=== PATIENT | female | born 1980 | race African-American/Black ===

== ENCOUNTER 2021-01-24 13:42 | Inpatient (IN) | payer OTHER ==
[~2021-01-24] VITALS: Ht 157.5 cm; Wt 70.8 kg
[2021-01-24] MEDS ORDERED: IV NORMAL SALINE 1000ML BAG 1,000 ML IV ONE ×2 (14:30→15:45)
[2021-01-24] MEDS ORDERED: MORPHINE SULFATE 4 MG/ML INJ. IVP ONE (14:30)
[2021-01-24] MEDS ORDERED: ONDANSETRON PF 4 MG/2 ML VIAL. IVP ONE (14:30)
--- NOTE | 2021-01-24 14:32 | PHYS DOC ---
Past Medical History Past Surgical History: Smoking Status: Current Every Day Smoker Additional Information: VAPES DAILY Alcohol Use: Occasionally General Adult EDM: Chief Complaint: FOOT INJURY PAIN HPI: HPI: Patient is a 40 year old female who presents with left foot and ankle pain. 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 Had a scrape on the back of her ankle. She put antibiotic ointment and had a bandage. Yesterday began having quickly advancing redness, swelling, and increasing pain. Overnight complained of subjective fever, chills, nausea, vomiting. She attributes her nausea and vomiting to a "bad" chicken salad from [employer]. Review of Systems: Review of Systems: Constitutional: Denies fever or chills. [] Eyes: Denies change in visual acuity. [] HENT: Denies nasal congestion or sore throat. [] Respiratory: Denies cough or shortness of breath. [] Cardiovascular: Denies chest pain or edema. [] GI: Reports nausea and vomiting, and cramping abdominal pain. : Denies dysuria. [] Musculoskeletal: Reports left ankle swelling, redness, tenderness. Integument: Denies rash. [] Neurologic: Denies headache, focal weakness or sensory changes. [] Endocrine: Denies polyuria or polydipsia. [] Lymphatic: Denies swollen glands. [] Psychiatric: Denies depression or anxiety. [] Heart Score: C/O Chest Pain: No Risk Factors: Risk Factors: DM, Current or recent (<one month) smoker, HTN, HLP, family history of CAD, obesity. Risk Scores: Score 0 - 3: 2.5% MACE over next 6 weeks - Discharge Home Score 4 - 6: 20.3% MACE over next 6 weeks - Admit for Clinical Observation Score 7 - 10: 72.7% MACE over next 6 weeks - Early Invasive Strategies Allergies: Allergies: Allergies Coded Allergies Type Severity Reaction Last Updated Verified No Known Drug Allergies 01/24/21 No Physical Exam: PE: Constitutional: Well developed, well nourished, no acute distress, non-toxic appearance. [] HENT: Normocephalic, atraumatic, bilateral external ears normal, oropharynx moist, no oral exudates, nose normal. [] Eyes: PERRLA, EOMI, conjunctiva normal, no discharge. [] Neck: Normal range of motion, no tenderness, supple, no stridor. [] Cardiovascular:Heart rate regular rhythm, no murmur [] Lungs & Thorax: Bilateral breath sounds clear to auscultation [] Abdomen: Bowel sounds normal, soft, no tenderness, no masses, no pulsatile masses. [] Skin: Warm, dry, no erythema, no rash. [] Back: No tenderness, no CVA tenderness. [] Extremities: Tight skin over the left ankle is warm, erythematous, and edematous when compared to the contralateral foot. Erythema streaking up the left gallardo and calf. She has severe ankle pain with passive range of motion. DP pulse intact. Brisk cap refill. Neurologic: Alert and oriented X 3, normal motor function, normal sensory function, no focal deficits noted. [] Psychologic: Affect normal, judgement normal, mood normal. [] Current Patient Data: Vital Signs: Vital Signs Date Time Temp Pulse Resp B/P (MAP) Pulse Ox O2 Delivery O2 Flow Rate FiO2 01/24/21 13:52 98.8 134 20 114/55 (74) 98 Room Air 98.8 EKG: EKG: [] Radiology/Procedures: Radiology/Procedures: [] Impression: [facility] [address] [place] [address] IMAGING REPORT Signed PATIENT: SARI VARGAS ACCOUNT: [id number] : 02/10/2003 LOCATION: ER AGE: 17 SEX: F EXAM STATUS: REG ER ORD. PHYSICIAN: MILAGRO VARGAS MD REASON: fall, right maxilla pain/tenderness/swelling PROCEDURE: CT HEAD AND MAXILLOFACIAL WO CT Head W/O Contrast: History: Reason: fall, right maxilla pain/tenderness/swelling / Spl. Instructions: / History: Comparison: none Axial images were obtained without contrast. The lockett and white matter appears normal and symmetrical for the patients age. There is no mass effect, extraaxial fluid collections or hydrocephalus. There is no gross bleed. There is no focal loss of lockett-white matter distinction to suggest acute ischemia, i.e. stroke. Impression: No acute findings. End impression CT maxillofacial without contrast History: sinus infection Axial helical images of the face were obtained without contrast. Axial and coronal reconstruction was performed. The nasal septum is mostly midline. The ostiomeatal complexes are narrow but patent. The paranasal sinuses are clear. The visualized osseous structures appear intact. The orbits appear normal. Impression: No acute findings. PQRS Compliance Statement: One or more of the following individualized dose reduction techniques were utilized for this examination: 1. Automated exposure control 2. Adjustment of the mA and/or kV according to patient size 3. Use of iterative reconstruction technique Electronically signed by: Fermín Vargas III, MD (01/24/2021 1:44 PM) [facility] DICTATED and SIGNED BY: FERMÍN VARGAS III, MD DATE: 01/24/21 [id number] 0 Course & Med Decision Making: Course & Med Decision Making Pertinent Labs and Imaging studies reviewed. (See chart for details) Patient is a 40-year-old female who presents with rapidly progressive redness, swelling, pain of her left ankle after a scrape sustained at work 2 days ago. Subjective fevers, but afebrile on arrival. Tachycardic in the 130s. BP stable. Concern for sepsis/cellulits by vital signs and exam. Given rapid progression and severe pain also concerned for potential NSTI. Sepsis order set initiated. Zosyn and vancomycin given. Plain films of the ankle and foot ordered. IV analgesics given. Will likely require admission for abx and potential surgical consultation pending course. 1430 White count elevated to 25. Also with ELO and anemia. To 2.5. I am definitely concerned for an STI. Discussed with general surgery who deferred to to orthopedic surgery given the location of the infection. Plain films did not show any acute bony process. Dr. Ma, of orthopedics, has requested a CT of the lower extremity with contrast. He is coming to evaluate the patient. Patient has been admitted to Dr. Waldrop, with [facility] [address] [facility] Disclaimer: Shey Disclaimer: This electronic medical record was generated, in whole or in part, using a voice recognition dictation system. Departure Departure Impression: Primary Impression: Sepsis Additional Impression: Cellulitis Disposition: ADMITTED INPATIENT Admitting Physician: BRANDEE (YI) Condition: CRITICAL Referrals: NO PCP (PCP) MILAGRO VARGAS MD Jan 24, 2021 14:32
--- NOTE | 2021-01-24 14:50 | RAD ---
EXAM: 1. LEFT ANKLE 3 VIEWS. 2. LEFT FOOT 3 VIEWS. HISTORY: Pain and swelling after injury. COMPARISON: None. FINDINGS: There is soft tissue swelling laterally at the ankle extending through the forefoot. There are no fractures throughout the foot and ankle. The joint spaces and alignment of the ankle mortise a re maintained. Joint spaces and alignment are maintained throughout the foot. IMPRESSION: 1. Lateral soft tissue swelling at the ankle extending to the forefoot. No fracture. Electronically signed by: Amalia Hsieh MD (01/24/2021 2:48 PM) [facility]
[2021-01-24 14:54] LABS: BASO % 0 % (0-3); EOS % 0 % (0-3); HEMATOCRIT 29.5 % (36.0-47.0); HEMOGLOBIN 8.9 g/dL (12.0-15.5); LYMPH # 0.5 x10^3/uL (1.0-4.8); LYMPH % 2 % (24-48); MEAN CORPUSCULAR HEMOGLOBIN 19 pg (25-35); MEAN CORPUSCULAR HGB CONC 30 g/dL (31-37); MEAN CORPUSCULAR VOLUME 64 fL (79-100); MONO # 1.2 x10^3/uL (0.0-1.1); MONO % 5 % (0-9); NEUT % 93 % (31-73); PLATELET COUNT 230 x10^3/uL (140-400); RED BLOOD COUNT 4.62 x10^6/uL (3.50-5.40); RED CELL DISTRIBUTION WIDTH 18.9 % (11.5-14.5); WHITE BLOOD COUNT 24.8 x10^3/uL (4.0-11.0)
[2021-01-24] MEDS ORDERED: PIPERACILLIN/TAZOBACTAM 4.5 GM in IV NORMAL SALINE 100ML 100 ML IV ONE (15:00)
[2021-01-24] MEDS ORDERED: VANCOMYCIN 1.5 GM in IV NORMAL SALINE 500ML BAG 500 ML IV ONE (15:00)
[2021-01-24 15:06] LABS: CALCIUM 8.4 mg/dL (8.5-10.1); CREATININE 1.2 mg/dL (0.6-1.0); GFR 60.8
[2021-01-24 15:17] LABS: % BANDS 11 % (0-9); % LYMPHS 2 % (24-48); % MONOS 5 % (0-10); % SEGS 82 % (35-66); PLT ESTIMATE ADEQUATE (ADEQUATE)
[2021-01-24 15:18] LABS: HYPOCHROMIA MOD; MICROCYTOSIS MARKED
[2021-01-24 15:19] LABS: ANISOCYTOSIS SLIGHT; POLYCHROMASIA SLIGHT
[2021-01-24 15:23] LABS: ALBUMIN 3.2 g/dL (3.4-5.0); ALBUMIN/GLOBULIN RATIO 0.8 (1.0-1.7); TOTAL BILIRUBIN 1.5 mg/dL (0.2-1.0); TOTAL PROTEIN 7.2 g/dL (6.4-8.2)
[2021-01-24 15:41] LABS: C-REACTIVE PROTEIN 173.8 mg/L (0-3.3)
--- NOTE | 2021-01-24 15:47 | PDOC1 ---
History and Physical Date of Service: DOS: DATE: 01/24/21 TIME: 15:40 Chief Complaint: Chief Complain: Foot injury History of Present Illness: HPI: History obtained from discussion with the ED physician and chart review: 40 year old female who presents with left foot and ankle pain. 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 Had a scrape on the back of her ankle. She put antibiotic ointment and had a bandage. Yesterday began having quickly advancing redness, swelling, and increasing pain. Overnight complained of subjective fever, chills, nausea, vomiting. She attributes her nausea and vomiting to a "bad" chicken salad from [employer]. Past Medical/Surgical History: PMH/PSH: No past medical history Past Surgical History: Allergies: Allergies: Coded Allergies: No Known Drug Allergies (Unverified , 01/24/21) Family History: Family History: Reviewed with no relevant findings Social History: Social History: Smoking Status: Current Every Day Vape smoker Alcohol Use: Occasionally Current Medications: Current Medications Current Medications Piperacillin Sod/ Tazobactam Sod 4.5 gm/Sodium Chloride 100 ml @ 200 mls/hr 1X ONCE IV Last administered on 01/24/21at 14:56; Start 01/24/21 at 15:00; Stop 01/24/21 at 15:29; Status DC Vancomycin HCl 1.5 gm/Sodium Chloride 500 ml @ 250 mls/hr 1X ONCE IV Last administered on 01/24/21at 15:29; Start 01/24/21 at 15:00; Stop 01/24/21 at 16:59 Sodium Chloride 1,000 ml @ 1,000 mls/hr 1X ONCE IV Last administered on 01/24/21at 14:55; Start 01/24/21 at 14:30; Stop 01/24/21 at 15:29; Status DC Morphine Sulfate (Morphine Sulfate) 4 mg 1X ONCE IVP Last administered on 01/24/21at 14:56; Start 01/24/21 at 14:30; Stop 01/24/21 at 14:31; Status DC Ondansetron HCl (Zofran) 4 mg 1X ONCE IVP Last administered on 01/24/21at 14:55; Start 01/24/21 at 14:30; Stop 01/24/21 at 14:31; Status DC Sodium Chloride 1,000 ml @ 1,000 mls/hr 1X ONCE IV ; Start 01/24/21 at 15:45; Stop 01/24/21 at 16:44; Status UNV ROS: Review of Systems Review of System REVIEW OF SYSTEMS: GENERAL: Denies weakness SKIN: No bruising, hair changes or rashes. EYES: No blurred, double or loss of vision. NOSE AND THROAT: No history of nosebleeds, hoarseness or sore throat. HEART: No history of palpitations, chest pain or shortness of breath on exertion. LUNGS: Denies cough, hemoptysis, wheezing or shortness of breath. GASTROINTESTINAL: Denies changes in appetite, nausea, vomiting, diarrhea or constipation. GENITOURINARY: No history of frequency, urgency, hesitancy or nocturia. NEUROLOGIC: Denies history of numbness, tingling, or tremor. PSYCHIATRIC: No history of panic, anxiety or depression. ENDOCRINE: No history of heat or cold intolerance, polyuria or polydipsia. EXTREMITIES: Left foot pain Physical Exam: Vital Signs: Vital Signs Date Time Temp Pulse Resp B/P (MAP) Pulse Ox O2 Delivery O2 Flow Rate FiO2 01/24/21 15:26 19 99 Room Air 01/24/21 13:52 98.8 134 114/55 (74) 98.8 Physcial Exam: General: Well developed, well nourished, no acute distress, well appearing HEENT: Pupils equally round and reactive to light, EOMI, no discharge, normal conjunctiva Neck: Supple, no nuchal rigidity, no JVD, trachea midline, no tenderness Cardiac: RRR, no murmurs, no gallops, no rubs Chest/Lungs: CTAB, no wheeze, no rhonchi, no crackles Abdomen: soft, non-distended, no guarding, no peritoneal signs, non-tender Back: No tenderness Extremities: Tight skin over the left ankle is warm, erythematous, and edematous when compared to the contralateral foot. Erythema streaking up the left gallardo and calf. She has severe ankle pain with passive range of motion. DP pulse intact. Brisk cap refill. Neuro: Alert and oriented x 4, no focal deficits, normal speech Labs: Labs: Laboratory Tests Test 01/24/21 14:45 White Blood Count 24.8 x10^3/uL (4.0-11.0) Red Blood Count 4.62 x10^6/uL (3.50-5.40) Hemoglobin 8.9 g/dL (12.0-15.5) Hematocrit 29.5 % (36.0-47.0) Mean Corpuscular Volume 64 fL (79-100) Mean Corpuscular Hemoglobin 19 pg (25-35) Mean Corpuscular Hemoglobin Concent 30 g/dL (31-37) Red Cell Distribution Width 18.9 % (11.5-14.5) Platelet Count 230 x10^3/uL (140-400) Neutrophils (%) (Auto) 93 % (31-73) Lymphocytes (%) (Auto) 2 % (24-48) Monocytes (%) (Auto) 5 % (0-9) Eosinophils (%) (Auto) 0 % (0-3) Basophils (%) (Auto) 0 % (0-3) Neutrophils # (Auto) 23.0 x10^3/uL (1.8-7.7) Lymphocytes # (Auto) 0.5 x10^3/uL (1.0-4.8) Monocytes # (Auto) 1.2 x10^3/uL (0.0-1.1) Eosinophils # (Auto) 0.0 x10^3/uL (0.0-0.7) Basophils # (Auto) 0.0 x10^3/uL (0.0-0.2) Segmented Neutrophils % 82 % (35-66) Band Neutrophils % 11 % (0-9) Lymphocytes % 2 % (24-48) Monocytes % 5 % (0-10) Platelet Estimate Adequate (ADEQUATE) Polychromasia Slight Hypochromasia Mod Anisocytosis Slight Microcytosis Marked Sodium Level 135 mmol/L (136-145) Potassium Level 3.0 mmol/L (3.5-5.1) Chloride Level 101 mmol/L (98-107) Carbon Dioxide Level 20 mmol/L (21-32) Anion Gap 14 (6-14) Blood Urea Nitrogen 7 mg/dL (7-20) Creatinine 1.2 mg/dL (0.6-1.0) Estimated GFR (Cockcroft-Gault) 60.8 BUN/Creatinine Ratio 6 (6-20) Glucose Level 90 mg/dL (70-99) Lactic Acid Level 2.5 mmol/L (0.4-2.0) Calcium Level 8.4 mg/dL (8.5-10.1) Total Bilirubin 1.5 mg/dL (0.2-1.0) Aspartate Amino Transf (AST/SGOT) 15 U/L (15-37) Alanine Aminotransferase (ALT/SGPT) 15 U/L (14-59) Alkaline Phosphatase 49 U/L (46-116) Total Protein 7.2 g/dL (6.4-8.2) Albumin 3.2 g/dL (3.4-5.0) Albumin/Globulin Ratio 0.8 (1.0-1.7) Laboratory Tests Test 01/24/21 14:45 White Blood Count 24.8 x10^3/uL (4.0-11.0) Red Blood Count 4.62 x10^6/uL (3.50-5.40) Hemoglobin 8.9 g/dL (12.0-15.5) Hematocrit 29.5 % (36.0-47.0) Mean Corpuscular Volume 64 fL (79-100) Mean Corpuscular Hemoglobin 19 pg (25-35) Mean Corpuscular Hemoglobin Concent 30 g/dL (31-37) Red Cell Distribution Width 18.9 % (11.5-14.5) Platelet Count 230 x10^3/uL (140-400) Neutrophils (%) (Auto) 93 % (31-73) Lymphocytes (%) (Auto) 2 % (24-48) Monocytes (%) (Auto) 5 % (0-9) Eosinophils (%) (Auto) 0 % (0-3) Basophils (%) (Auto) 0 % (0-3) Neutrophils # (Auto) 23.0 x10^3/uL (1.8-7.7) Lymphocytes # (Auto) 0.5 x10^3/uL (1.0-4.8) Monocytes # (Auto) 1.2 x10^3/uL (0.0-1.1) Eosinophils # (Auto) 0.0 x10^3/uL (0.0-0.7) Basophils # (Auto) 0.0 x10^3/uL (0.0-0.2) Segmented Neutrophils % 82 % (35-66) Band Neutrophils % 11 % (0-9) Lymphocytes % 2 % (24-48) Monocytes % 5 % (0-10) Platelet Estimate Adequate (ADEQUATE) Polychromasia Slight Hypochromasia Mod Anisocytosis Slight Microcytosis Marked Sodium Level 135 mmol/L (136-145) Potassium Level 3.0 mmol/L (3.5-5.1) Chloride Level 101 mmol/L (98-107) Carbon Dioxide Level 20 mmol/L (21-32) Anion Gap 14 (6-14) Blood Urea Nitrogen 7 mg/dL (7-20) Creatinine 1.2 mg/dL (0.6-1.0) Estimated GFR (Cockcroft-Gault) 60.8 BUN/Creatinine Ratio 6 (6-20) Glucose Level 90 mg/dL (70-99) Lactic Acid Level 2.5 mmol/L (0.4-2.0) Calcium Level 8.4 mg/dL (8.5-10.1) Total Bilirubin 1.5 mg/dL (0.2-1.0) Aspartate Amino Transf (AST/SGOT) 15 U/L (15-37) Alanine Aminotransferase (ALT/SGPT) 15 U/L (14-59) Alkaline Phosphatase 49 U/L (46-116) Total Protein 7.2 g/dL (6.4-8.2) Albumin 3.2 g/dL (3.4-5.0) Albumin/Globulin Ratio 0.8 (1.0-1.7) Images: Images PROCEDURE: ANKLE LEFT 3V IMPRESSION: 1. Lateral soft tissue swelling at the ankle extending to the forefoot. No fracture. Assessment/Plan Assessment/Plan Sepsis Acute left foot cellulitis secondary to trauma Concern for necrotizing fasciitis, LRINEC score > 10 High risk ELO due to vasomotor nephropathy Lactic acidemia Reactive leukocytosis Mild hyponatremia Mild hypokalemia Microcytic anemia, likely due to OLIVE Admit to hospitalist for further management Surgery consult Continue empiric IV antibiotics Continue clindamycin for antitoxin effect IV and p.o. electrolyte replacement Consider ferritin level Continue IV fluids Heparin for DVT prophylaxis N.p.o. for now CODE STATUS FULL Discussed with RN and SW Disposition inpatient management as above DPOA: Carlotta Jack Justifications for Admission Other Justification MALATHI RICHMOND MD Jan 24, 2021 15:47
[2021-01-24] MEDS ORDERED: CONTRAST GIVEN. MC PRN (16:15)
[2021-01-24] MEDS ORDERED: IOHEXOL 300 MG/ML 100ML VIAL. IV ONE (16:15)
[2021-01-24] MEDS ORDERED: DIPH,PERTUSS(ACELL),TET VAC/PF 0.5 ML SYRINGE. VAX IM ONE (16:45)
[2021-01-24] MEDS ORDERED: HYDROmorphone 2 MG/ML VIAL IVP ONE (16:45)
--- NOTE | 2021-01-24 17:15 | RAD ---
CT of the left lower extremity with contrast HISTORY: Swelling Axial helical images were obtained from the knee through the foot after the administration of 75 mL o f IV Omni 300. Axial coronal and sagittal reconstruction was performed. FINDINGS: There is soft tissue edema seen in the subcutaneous fat layer laterally in the foot and ankle. The ex tensor tendons appear normal. The visualized osseous structures appear normal. There is no abscess or air. There is no loss of the fat soft tissue planes. IMPRESSION: Soft tissue edema laterally. End impression These results were called to Dr. Greco and verified by read back at the time of dictation. Electronically signed by: Charlie Estrada III, MD (01/24/2021 5:13 PM) [facility]
[2021-01-24] MEDS ORDERED: DOCUSATE SODIUM 100 MG CAPSULE. PO PRN (17:45)
[2021-01-24] MEDS ORDERED: ZOLPIDEM 5 MG TABLET. PO PRN (17:45)
[2021-01-24] MEDS ORDERED: DEXTROSE 50% 25 GM / 50ML DISP.SYRIN. IV PRN (17:45)
[2021-01-24] MEDS ORDERED: SENNOSIDES 8.6 MG TABLET PO PRN (17:45)
[2021-01-24] MEDS ORDERED: ONDANSETRON PF 4 MG/2 ML VIAL. IVP PRN (17:45)
[2021-01-24] MEDS ORDERED: CEFEPIME HCL IV Push 1 GM VIAL. IVP ONE (18:00)
[2021-01-24 19:00] VITALS: BP 99/61
[2021-01-24] MEDS: IV NORMAL SALINE 1000ML BAG 1,000 ML IV SCH (19:19)
[2021-01-24] MEDS: MORPHINE SULFATE 2 MG/ML INJ. IVP PRN (19:20)
--- NOTE | 2021-01-24 20:00 | NUR ---
The patient, MATHEW NUÑEZ, 40 y/o, F admitted by MALATHI RICHMOND MD, was given written information regarding hospital policies, unit procedures and contact persons. Valuables were checked and pt refused security for any belongings. All questions answered. Will continue to monitor.
[2021-01-24] MEDS: ENOXAPARIN 40 MG/0.4 ML SYRINGE. SQ SCH (20:21)
--- NOTE | 2021-01-24 21:51 | CONS ---
DATE OF CONSULTATION: 01/24/2021 EMERGENCY DEPARTMENT CONSULTATION REQUESTING PHYSICIAN: Audie Zavaleta MD REASON FOR CONSULTATION: Left foot infection and concern for potential necrotizing fasciitis. 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 She subsequently placed some antibiotic ointment and a light bandage on the area, but noted as of the next day yesterday, now she had increasing pain, swelling and redness and this morning noted complaints of fever, chills and felt nauseous. The foot is becoming increasingly tender and swollen. PAST MEDICAL HISTORY: Significant for hypoglycemia. She denies diabetes. PAST SURGICAL HISTORY: . ALLERGIES: She has no known drug allergies. FAMILY HISTORY: Noncontributory. SOCIAL HISTORY: She denies drug use. She told me she smokes cigars and told the Emergency Department doctor and the hospitalist that she vapes. Occasional use of alcohol. Otherwise, independently ambulatory and really overall healthy prior to this issue. REVIEW OF SYSTEMS: Significant for the recent fever, chills, nausea and vomiting. Regarding other potential causes of nausea and vomiting, she thinks she got some bad chicken salad yesterday evening, but still does not feel very good and the left ankle as really continuing to bother her, getting more swollen and painful to touch or to any movement, also subjectively continues to have chills. Denies any other joint pain. PHYSICAL EXAMINATION: GENERAL: This is a pleasant, cooperative, 40-year-old female, alert and oriented, no acute distress. EXTREMITIES: Examination of the left ankle: She has a small abrasion posteriorly over the Achilles area, seems to have swelling and cellulitis that extends about probably 4 inches above her ankle. She really is not tender over the bony malleoli, but really only over the cellulitic area. On examination of her calf, there is really no any crepitus or air finding. She claims to be tender on palpation over the palpation of the calf musculature, but there is no redness, skin thickening or erythema in the area at all as it is just above the ankle. Her foot is swollen, but compartments are not tense. She can wiggle her toes with minimal pain. Moving her ankle itself causes more pulling and discomfort on the swollen, reddened area. She has normal examination of the contralateral right ankle, bilateral hips and knees as well as normal shoulder, elbow and wrist examination bilaterally with intact motor function, distal pulses, sensation, reflexes, skin in both upper and lower extremities throughout. CT scan was obtained with contrast and no evidence of abscess is present. She also really has no deep involvement whatsoever either of the fascial plane really or the deep subcutaneous area instead. There is no evidence of any necrotizing fasciitis, no air present whatsoever and really just the skin and superficial subcutaneous tissue involved at all. IMPRESSION: 1. Left ankle abrasion with subsequent cellulitis, swelling and pain. 2. Elevated white count with fever or chills. 3. Nausea and vomiting, perhaps due to some bad chicken salad last evening. TREATMENT PLAN: I had talked to her about the possibility of surgery if there is spreading infection; however, at this point, this seems to be more superficial and cellulitis. I would recommend elevation, antibiotics and observation based on the CT findings, which were reviewed with the radiologist today as well. I also cross pass with Dr. Waldrop, the hospitalist, who was also going to add clindamycin onto her regimen currently. Again, observation with nonoperative management currently. BRIE MARIE: Randy TID: [id number]
[2021-01-24] MEDS: CLINDAMYCIN 600MG PREMIX 50 ML IV SCH (22:42)
[2021-01-24 23:00] VITALS: BP 92/58
[2021-01-25] MEDS ORDERED: [UNRECOGNIZED DRUG - REMARK] (00:10)
[2021-01-25] MEDS: VANCOMYCIN PER PHARMACY MC PRN ×2 (00:23→09:59)
--- NOTE | 2021-01-25 00:23 | NUR ---
Pharmacy Vancomycin Dosing Note S:Consulted to monitor and dose vancomycin started 01/24/21. O:MATHEW NUÑEZ is a 40 year old F with Cellulitis Sepsis . Height: 5 feet, 2 inches Weight: 71.1 kg [place] Body Weight: 50.10 Adjusted Body Weight: 58.50 Dosing Weight: Actual Other Antibiotics: CLINDAMYCIN X3 ZOSYN 1X ED LABS: Last BUN: 7 Last Creatinine: 1.2 Creatinine Clearance: 56 mL/min Last WBC: 24.8 Last Procalcitonin: Tmax (past 24 hours): Microbiology: I/O: Drug Levels: Last level: on at Last dose given 01/24/21 at 1530 Vancomycin Dosing: Loading Dose: 1500 mg x1 Dosing Weight: Actual Target Trough: 15-20 A: Based on: WT AND CRCL P: 1. Begin Vancomycin 1000 mg IV q18h 2. Follow up Trough level on 01/26/21 at 0230 3. Pharmacy will continue to monitor, follow and adjust therapy as needed. CHECO BROWN RPH, 01/25/21 0023 Signed: 01/25/21 at 0023 by CHECO BROWN RPH PHA
[2021-01-25] MEDS: MORPHINE SULFATE 2 MG/ML INJ. IVP PRN ×5 (00:58→16:40)
[2021-01-25 02:56] VITALS: BP 95/56
[2021-01-25] MEDS: IV NORMAL SALINE 1000ML BAG 1,000 ML IV SCH ×2 (04:37→16:42)
[2021-01-25] MEDS: CLINDAMYCIN 600MG PREMIX 50 ML IV SCH ×2 (05:31→14:05)
[2021-01-25 07:00] VITALS: BP 95/52
[2021-01-25] MEDS: HYDROcodone/APAP 5/325MG 1 TAB TABLET PO PRN ×3 (08:39→19:21)
[2021-01-25] MEDS ORDERED: VANCOMYCIN 1 GM in IV NORMAL SALINE 250ML 250 ML IV SCH (09:00)
[2021-01-25 09:14] LABS: BASO # 0.1 x10^3/uL (0.0-0.2); BASO % 0 % (0-3); EOS % 0 % (0-3); HEMATOCRIT 28.1 % (36.0-47.0); HEMOGLOBIN 7.9 g/dL (12.0-15.5); LYMPH # 0.7 x10^3/uL (1.0-4.8); LYMPH % 3 % (24-48); MEAN CORPUSCULAR HEMOGLOBIN 19 pg (25-35); MEAN CORPUSCULAR HGB CONC 28 g/dL (31-37); MEAN CORPUSCULAR VOLUME 68 fL (79-100); MONO # 1.1 x10^3/uL (0.0-1.1); MONO % 5 % (0-9); NEUT # 22.4 x10^3/uL (1.8-7.7); NEUT % 92 % (31-73); PLATELET COUNT 202 x10^3/uL (140-400); RED BLOOD COUNT 4.11 x10^6/uL (3.50-5.40); RED CELL DISTRIBUTION WIDTH 19.1 % (11.5-14.5); WHITE BLOOD COUNT 24.3 x10^3/uL (4.0-11.0)
[2021-01-25 09:56] LABS: CALCIUM 7.2 mg/dL (8.5-10.1); CREATININE 1.1 mg/dL (0.6-1.0); GFR 67.3; MAGNESIUM 1.8 mg/dL (1.8-2.4)
[2021-01-25 10:00] LABS: POTASSIUM 2.9 mmol/L (3.5-5.1)
--- NOTE | 2021-01-25 10:19 | PDOC ---
PROGRESS NOTES Date of Service DATE: 01/25/21 TIME: 10:16 Subjective Subjective Problems overnight: Continues to complain of left ankle pain. She appears sleepy but is arousable and responds to questions Objective Vital Signs Vital Signs Date Time Temp Pulse Resp B/P (MAP) Pulse Ox O2 Delivery O2 Flow Rate FiO2 01/25/21 08:39 18 98 Nasal Cannula 2.0 01/25/21 07:00 100.0 116 95/52 (66) 100.0 Physical Exam On exam calf muscles are soft and nontender there is no evidence of any proximal migration of redness. She has a bit of bruising and a small developing blister over the lateral aspect of the ankle no clear abscess is palpable and there is no air or crepitus noted. She can gently move the ankle with pain and wiggle the toes on the left Labs Laboratory Tests Test 01/24/21 14:45 01/24/21 16:15 01/24/21 17:08 01/25/21 04:55 White Blood Count 24.8 x10^3/uL (4.0-11.0) 24.3 x10^3/uL (4.0-11.0) Red Blood Count 4.62 x10^6/uL (3.50-5.40) 4.11 x10^6/uL (3.50-5.40) Hemoglobin 8.9 g/dL (12.0-15.5) 7.9 g/dL (12.0-15.5) Hematocrit 29.5 % (36.0-47.0) 28.1 % (36.0-47.0) Mean Corpuscular Volume 64 fL (79-100) 68 fL (79-100) Mean Corpuscular Hemoglobin 19 pg (25-35) 19 pg (25-35) Mean Corpuscular Hemoglobin Concent 30 g/dL (31-37) 28 g/dL (31-37) Red Cell Distribution Width 18.9 % (11.5-14.5) 19.1 % (11.5-14.5) Platelet Count 230 x10^3/uL (140-400) 202 x10^3/uL (140-400) Neutrophils (%) (Auto) 93 % (31-73) 92 % (31-73) Lymphocytes (%) (Auto) 2 % (24-48) 3 % (24-48) Monocytes (%) (Auto) 5 % (0-9) 5 % (0-9) Eosinophils (%) (Auto) 0 % (0-3) 0 % (0-3) Basophils (%) (Auto) 0 % (0-3) 0 % (0-3) Neutrophils # (Auto) 23.0 x10^3/uL (1.8-7.7) 22.4 x10^3/uL (1.8-7.7) Lymphocytes # (Auto) 0.5 x10^3/uL (1.0-4.8) 0.7 x10^3/uL (1.0-4.8) Monocytes # (Auto) 1.2 x10^3/uL (0.0-1.1) 1.1 x10^3/uL (0.0-1.1) Eosinophils # (Auto) 0.0 x10^3/uL (0.0-0.7) 0.0 x10^3/uL (0.0-0.7) Basophils # (Auto) 0.0 x10^3/uL (0.0-0.2) 0.1 x10^3/uL (0.0-0.2) Segmented Neutrophils % 82 % (35-66) Band Neutrophils % 11 % (0-9) Lymphocytes % 2 % (24-48) Monocytes % 5 % (0-10) Platelet Estimate Adequate (ADEQUATE) Polychromasia Slight Hypochromasia Mod Anisocytosis Slight Microcytosis Marked Erythrocyte Sedimentation Rate 22 (0-25) Sodium Level 135 mmol/L (136-145) 140 mmol/L (136-145) Potassium Level 3.0 mmol/L (3.5-5.1) 2.9 mmol/L (3.5-5.1) Chloride Level 101 mmol/L (98-107) 106 mmol/L (98-107) Carbon Dioxide Level 20 mmol/L (21-32) 19 mmol/L (21-32) Anion Gap 14 (6-14) 15 (6-14) Blood Urea Nitrogen 7 mg/dL (7-20) 7 mg/dL (7-20) Creatinine 1.2 mg/dL (0.6-1.0) 1.1 mg/dL (0.6-1.0) Estimated GFR (Cockcroft-Gault) 60.8 67.3 BUN/Creatinine Ratio 6 (6-20) Glucose Level 90 mg/dL (70-99) 83 mg/dL (70-99) Lactic Acid Level 2.5 mmol/L (0.4-2.0) 2.2 mmol/L (0.4-2.0) Calcium Level 8.4 mg/dL (8.5-10.1) 7.2 mg/dL (8.5-10.1) Total Bilirubin 1.5 mg/dL (0.2-1.0) Aspartate Amino Transf (AST/SGOT) 15 U/L (15-37) Alanine Aminotransferase (ALT/SGPT) 15 U/L (14-59) Alkaline Phosphatase 49 U/L (46-116) C-Reactive Protein, Quantitative 173.8 mg/L (0-3.3) Total Protein 7.2 g/dL (6.4-8.2) Albumin 3.2 g/dL (3.4-5.0) Albumin/Globulin Ratio 0.8 (1.0-1.7) Bedside Urine HCG, Qualitative Hcg negative (Negative) SARS-CoV-2 Antigen (Rapid) Negative (NEGATIVE) Magnesium Level 1.8 mg/dL (1.8-2.4) Laboratory Tests Test 01/24/21 14:45 01/24/21 16:15 01/24/21 17:08 01/25/21 04:55 White Blood Count 24.8 x10^3/uL (4.0-11.0) 24.3 x10^3/uL (4.0-11.0) Red Blood Count 4.62 x10^6/uL (3.50-5.40) 4.11 x10^6/uL (3.50-5.40) Hemoglobin 8.9 g/dL (12.0-15.5) 7.9 g/dL (12.0-15.5) Hematocrit 29.5 % (36.0-47.0) 28.1 % (36.0-47.0) Mean Corpuscular Volume 64 fL (79-100) 68 fL (79-100) Mean Corpuscular Hemoglobin 19 pg (25-35) 19 pg (25-35) Mean Corpuscular Hemoglobin Concent 30 g/dL (31-37) 28 g/dL (31-37) Red Cell Distribution Width 18.9 % (11.5-14.5) 19.1 % (11.5-14.5) Platelet Count 230 x10^3/uL (140-400) 202 x10^3/uL (140-400) Neutrophils (%) (Auto) 93 % (31-73) 92 % (31-73) Lymphocytes (%) (Auto) 2 % (24-48) 3 % (24-48) Monocytes (%) (Auto) 5 % (0-9) 5 % (0-9) Eosinophils (%) (Auto) 0 % (0-3) 0 % (0-3) Basophils (%) (Auto) 0 % (0-3) 0 % (0-3) Neutrophils # (Auto) 23.0 x10^3/uL (1.8-7.7) 22.4 x10^3/uL (1.8-7.7) Lymphocytes # (Auto) 0.5 x10^3/uL (1.0-4.8) 0.7 x10^3/uL (1.0-4.8) Monocytes # (Auto) 1.2 x10^3/uL (0.0-1.1) 1.1 x10^3/uL (0.0-1.1) Eosinophils # (Auto) 0.0 x10^3/uL (0.0-0.7) 0.0 x10^3/uL (0.0-0.7) Basophils # (Auto) 0.0 x10^3/uL (0.0-0.2) 0.1 x10^3/uL (0.0-0.2) Segmented Neutrophils % 82 % (35-66) Band Neutrophils % 11 % (0-9) Lymphocytes % 2 % (24-48) Monocytes % 5 % (0-10) Platelet Estimate Adequate (ADEQUATE) Polychromasia Slight Hypochromasia Mod Anisocytosis Slight Microcytosis Marked Erythrocyte Sedimentation Rate 22 (0-25) Sodium Level 135 mmol/L (136-145) 140 mmol/L (136-145) Potassium Level 3.0 mmol/L (3.5-5.1) 2.9 mmol/L (3.5-5.1) Chloride Level 101 mmol/L (98-107) 106 mmol/L (98-107) Carbon Dioxide Level 20 mmol/L (21-32) 19 mmol/L (21-32) Anion Gap 14 (6-14) 15 (6-14) Blood Urea Nitrogen 7 mg/dL (7-20) 7 mg/dL (7-20) Creatinine 1.2 mg/dL (0.6-1.0) 1.1 mg/dL (0.6-1.0) Estimated GFR (Cockcroft-Gault) 60.8 67.3 BUN/Creatinine Ratio 6 (6-20) Glucose Level 90 mg/dL (70-99) 83 mg/dL (70-99) Lactic Acid Level 2.5 mmol/L (0.4-2.0) 2.2 mmol/L (0.4-2.0) Calcium Level 8.4 mg/dL (8.5-10.1) 7.2 mg/dL (8.5-10.1) Total Bilirubin 1.5 mg/dL (0.2-1.0) Aspartate Amino Transf (AST/SGOT) 15 U/L (15-37) Alanine Aminotransferase (ALT/SGPT) 15 U/L (14-59) Alkaline Phosphatase 49 U/L (46-116) C-Reactive Protein, Quantitative 173.8 mg/L (0-3.3) Total Protein 7.2 g/dL (6.4-8.2) Albumin 3.2 g/dL (3.4-5.0) Albumin/Globulin Ratio 0.8 (1.0-1.7) Bedside Urine HCG, Qualitative Hcg negative (Negative) SARS-CoV-2 Antigen (Rapid) Negative (NEGATIVE) Magnesium Level 1.8 mg/dL (1.8-2.4) Imaging Previous CT with contrast shows just superficial involvement typical of cellulitis. No evidence of any abscess deep infection or necrotizing fasciitis findings Assessment Assessment Nonoperative management of left ankle cellulitis Plan Plan of Care Previous CT scan with contrast was negative for any abscess or deep involvement. Continue to observe at present. If this coalesces more she may need some surgical treatment particularly over the lateral aspect of the ankle but currently compartments are soft and there does not appear any evidence of progression Justicifation of Admission Dx: Justifications for Admission: Justification of Admission Dx: N/A BERLIN FERNANDES MD Jan 25, 2021 10:19
--- NOTE | 2021-01-25 10:51 | PDOC ---
[facility] PROGRESS NOTE Date of Service DOS: DATE: 01/25/21 TIME: 10:47 Chief Complaint Chief Complaint Assessment/Plan Sepsis Acute left foot cellulitis secondary to trauma Concern for necrotizing fasciitis, LRINEC score > 10 High risk ELO due to vasomotor nephropathy Lactic acidemia Reactive leukocytosis Mild hyponatremia Mild hypokalemia Microcytic anemia, likely due to OLIVE Admit to hospitalist for further management Surgery consult Continue empiric IV antibiotics Continue clindamycin for antitoxin effect IV and p.o. electrolyte replacement Consider ferritin level Continue IV fluids Heparin for DVT prophylaxis Regular diet CODE STATUS FULL Discussed with RN and SW Disposition inpatient management as above DPOA: Carlotta Jack History of Present Illness History of Present Illness 40 year old female who presents with left foot and ankle pain. 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 Had a scrape on the back of her ankle. She put antibiotic ointment and had a bandage. Yesterday began having quickly advancing redness, swelling, and increasing pain. Overnight complained of subjective fever, chills, nausea, vomiting. She attributes her nausea and vomiting to a "bad" chicken salad from [employer]. 01/25/2021 No acute events overnight. Patient seen and examined bedside. Continues to have pain in her left lower extremity. Progression of her redness has not worsened. Ortho evaluated and continues to recommend nonsurgical management. Continue with IV antibiotics. Patient's chart, labs, images were reviewed and discussed with RN Vitals/I&O Vitals/I&O: Vital Signs Date Time Temp Pulse Resp B/P (MAP) Pulse Ox O2 Delivery O2 Flow Rate FiO2 01/25/21 08:39 18 98 Nasal Cannula 2.0 01/25/21 07:00 100.0 116 95/52 (66) 100.0 I & O 01/24/21 01/24/21 01/25/21 15:00 23:00 07:00 Intake Total 2600 ml 1340 ml Output Total 400 ml Balance 2600 ml 940 ml Physical Exam General: Alert, Oriented X3, Cooperative Heart: Regular rate Lungs: Clear Abdomen: Normal bowel sounds, No tenderness, Other (Extremities: Tight skin over the left ankle is warm, erythematous, and edematous when compared to the contralateral foot. Erythema streaking up the left gallardo and calf. She has severe ankle pain with passive range of motion. DP pulse intact. Brisk cap refill.) Labs Labs: Laboratory Tests Test 01/24/21 14:45 01/24/21 16:15 01/24/21 17:08 01/25/21 04:55 White Blood Count 24.8 x10^3/uL (4.0-11.0) 24.3 x10^3/uL (4.0-11.0) Red Blood Count 4.62 x10^6/uL (3.50-5.40) 4.11 x10^6/uL (3.50-5.40) Hemoglobin 8.9 g/dL (12.0-15.5) 7.9 g/dL (12.0-15.5) Hematocrit 29.5 % (36.0-47.0) 28.1 % (36.0-47.0) Mean Corpuscular Volume 64 fL (79-100) 68 fL (79-100) Mean Corpuscular Hemoglobin 19 pg (25-35) 19 pg (25-35) Mean Corpuscular Hemoglobin Concent 30 g/dL (31-37) 28 g/dL (31-37) Red Cell Distribution Width 18.9 % (11.5-14.5) 19.1 % (11.5-14.5) Platelet Count 230 x10^3/uL (140-400) 202 x10^3/uL (140-400) Neutrophils (%) (Auto) 93 % (31-73) 92 % (31-73) Lymphocytes (%) (Auto) 2 % (24-48) 3 % (24-48) Monocytes (%) (Auto) 5 % (0-9) 5 % (0-9) Eosinophils (%) (Auto) 0 % (0-3) 0 % (0-3) Basophils (%) (Auto) 0 % (0-3) 0 % (0-3) Neutrophils # (Auto) 23.0 x10^3/uL (1.8-7.7) 22.4 x10^3/uL (1.8-7.7) Lymphocytes # (Auto) 0.5 x10^3/uL (1.0-4.8) 0.7 x10^3/uL (1.0-4.8) Monocytes # (Auto) 1.2 x10^3/uL (0.0-1.1) 1.1 x10^3/uL (0.0-1.1) Eosinophils # (Auto) 0.0 x10^3/uL (0.0-0.7) 0.0 x10^3/uL (0.0-0.7) Basophils # (Auto) 0.0 x10^3/uL (0.0-0.2) 0.1 x10^3/uL (0.0-0.2) Segmented Neutrophils % 82 % (35-66) Band Neutrophils % 11 % (0-9) Lymphocytes % 2 % (24-48) Monocytes % 5 % (0-10) Platelet Estimate Adequate (ADEQUATE) Polychromasia Slight Hypochromasia Mod Anisocytosis Slight Microcytosis Marked Erythrocyte Sedimentation Rate 22 (0-25) Sodium Level 135 mmol/L (136-145) 140 mmol/L (136-145) Potassium Level 3.0 mmol/L (3.5-5.1) 2.9 mmol/L (3.5-5.1) Chloride Level 101 mmol/L (98-107) 106 mmol/L (98-107) Carbon Dioxide Level 20 mmol/L (21-32) 19 mmol/L (21-32) Anion Gap 14 (6-14) 15 (6-14) Blood Urea Nitrogen 7 mg/dL (7-20) 7 mg/dL (7-20) Creatinine 1.2 mg/dL (0.6-1.0) 1.1 mg/dL (0.6-1.0) Estimated GFR (Cockcroft-Gault) 60.8 67.3 BUN/Creatinine Ratio 6 (6-20) Glucose Level 90 mg/dL (70-99) 83 mg/dL (70-99) Lactic Acid Level 2.5 mmol/L (0.4-2.0) 2.2 mmol/L (0.4-2.0) Calcium Level 8.4 mg/dL (8.5-10.1) 7.2 mg/dL (8.5-10.1) Total Bilirubin 1.5 mg/dL (0.2-1.0) Aspartate Amino Transf (AST/SGOT) 15 U/L (15-37) Alanine Aminotransferase (ALT/SGPT) 15 U/L (14-59) Alkaline Phosphatase 49 U/L (46-116) C-Reactive Protein, Quantitative 173.8 mg/L (0-3.3) Total Protein 7.2 g/dL (6.4-8.2) Albumin 3.2 g/dL (3.4-5.0) Albumin/Globulin Ratio 0.8 (1.0-1.7) Bedside Urine HCG, Qualitative Hcg negative (Negative) SARS-CoV-2 Antigen (Rapid) Negative (NEGATIVE) Magnesium Level 1.8 mg/dL (1.8-2.4) Assessment and Plan Assessmemt and Plan Problems Medical Problems: (1) Cellulitis Status: Acute (2) Sepsis Status: Acute Comment Review of Relevant I have reviewed the following items carmel (where applicable) has been applied. Medications: Current Medications Medications (Trade) Dose Ordered Sig/Patricia Route PRN Reason Start Time Stop Time Status Last Admin Dose Admin Piperacillin Sod/ Tazobactam Sod 4.5 gm/Sodium Chloride 100 ml @ 200 mls/hr 1X ONCE IV 01/24/21 15:00 01/24/21 15:29 DC 01/24/21 14:56 Vancomycin HCl 1.5 gm/Sodium Chloride 500 ml @ 250 mls/hr 1X ONCE IV 01/24/21 15:00 01/24/21 16:59 DC 01/24/21 15:29 Sodium Chloride 1,000 ml @ 1,000 mls/hr 1X ONCE IV 01/24/21 14:30 01/24/21 15:29 DC 01/24/21 14:55 Morphine Sulfate (Morphine Sulfate) 4 mg 1X ONCE IVP 01/24/21 14:30 01/24/21 14:31 DC 01/24/21 14:56 Ondansetron HCl (Zofran) 4 mg 1X ONCE IVP 01/24/21 14:30 01/24/21 14:31 DC 01/24/21 14:55 Sodium Chloride 1,000 ml @ 1,000 mls/hr 1X ONCE IV 01/24/21 15:45 01/24/21 16:44 DC 01/24/21 16:17 Iohexol (Omnipaque 300 Mg/ml) 75 ml 1X ONCE IV 01/24/21 16:15 01/24/21 16:16 DC 01/24/21 16:55 Hydromorphone HCl (Dilaudid) 1 mg 1X ONCE IVP 01/24/21 16:45 01/24/21 16:46 DC 01/24/21 16:45 Diphtheria/ Tetanus/Acell Pertussis (ADACEL TDap SYRINGE) 0.5 ml ONCE ONCE VAX IM 01/24/21 16:45 01/24/21 16:46 DC 01/24/21 16:44 Clindamycin Phosphate 50 ml @ 100 mls/hr Q8HRS IV 01/24/21 22:00 01/25/21 21:59 01/25/21 05:31 Sodium Chloride 1,000 ml @ 100 mls/hr Q10H IV 01/24/21 18:00 01/25/21 04:37 Vancomycin HCl (Vanco Per Pharmacy) 1 each PRN DAILY PRN MC SEE COMMENTS 01/24/21 17:45 01/25/21 09:59 Acetaminophen/ Hydrocodone Bitart (Lortab 5/325) 1 tab PRN Q4HRS PRN PO MODERATE PAIN 4-6 01/24/21 17:45 01/25/21 08:39 Morphine Sulfate (Morphine Sulfate) 2 mg PRN Q2HR PRN IVP BREAKTHRU PAIN 01/24/21 17:45 01/25/21 17:44 01/25/21 07:30 Cefepime HCl (Maxipime) 1 gm 1X ONCE IVP 01/24/21 18:00 01/24/21 18:02 DC 01/24/21 19:19 Vancomycin HCl 1 gm/Sodium Chloride 250 ml @ 250 mls/hr Q18H IV 01/25/21 09:00 01/25/21 08:39 Justifications for Admission Other Justification Foot infection MALATHI RICHMOND MD Jan 25, 2021 10:51
[2021-01-25 11:00] VITALS: BP 90/48
[2021-01-25] MEDS ORDERED: CEFEPIME HCL IV Push 1 GM VIAL. IVP SCH (11:00)
[2021-01-25] MEDS ORDERED: POTASSIUM CHLORIDE 20 MEQ TABLET.ER. PO ONE ×2 (11:00→16:00)
[2021-01-25 15:00] VITALS: BP 86/52
[2021-01-25 19:00] VITALS: BP 93/58
[2021-01-25] MEDS: ENOXAPARIN 40 MG/0.4 ML SYRINGE. SQ SCH (19:20)
[2021-01-25] MEDS: LACTOBACILLUS RHAMNOSUS GG 1 CAPSULE. PO SCH (19:20)
[2021-01-25] MEDS: MORPHINE SULFATE 2 MG/ML INJ. IV PRN (22:26)
[2021-01-25 23:00] VITALS: BP 93/53
[2021-01-26] MEDS: HYDROcodone/APAP 5/325MG 1 TAB TABLET PO PRN ×3 (01:29→13:57)
[2021-01-26] MEDS: IV NORMAL SALINE 1000ML BAG 1,000 ML IV SCH ×3 (01:30→20:27)
[2021-01-26 03:02] VITALS: BP 115/58
[2021-01-26] MEDS: MORPHINE SULFATE 2 MG/ML INJ. IV PRN ×2 (03:43→08:15)
[2021-01-26 04:21] LABS: ANION GAP 10 (6-14); BLOOD UREA NITROGEN 5 mg/dL (7-20); CALCIUM 7.4 mg/dL (8.5-10.1); CARBON DIOXIDE 24 mmol/L (21-32); CHLORIDE 107 mmol/L (98-107); CREATININE 0.9 mg/dL (0.6-1.0); GFR 84.8; GLUCOSE 71 mg/dL (70-99); POTASSIUM 3.1 mmol/L (3.5-5.1); SODIUM 141 mmol/L (136-145); VANC TR 3.2 mcg/mL (10.0-20.0)
[2021-01-26] MEDS: VANCOMYCIN PER PHARMACY MC PRN (04:45)
--- NOTE | 2021-01-26 04:45 | NUR ---
Pharmacy Vancomycin Dosing Note S:Consulted to monitor and dose vancomycin started 01/24/21. O:MATHEW NUÑEZ is a 40 year old F with Cellulitis Sepsis . Height: 5 feet, 2 inches Weight: 71.1 kg [employer] Body Weight: 50.10 Adjusted Body Weight: 58.50 Dosing Weight: Actual Other Antibiotics: CLINDAMYCIN X3 ZOSYN 1X ED CEFEPIME 1 GM Q24H LABS: Last BUN: 7 Last Creatinine: 0.9 Creatinine Clearance: 73 mL/min Last WBC: 24.3 Last Procalcitonin: Tmax (past 24 hours): 100.6 Microbiology: I/O: 3940/400 Drug Levels: Last Trough level: 3.2 on 01/26/21 at 0230 Last dose given 01/25/21 at 0839 Vancomycin Dosing: Loading Dose: 1500 mg x1 Dosing Weight: Actual Target Trough: 15-20 A: Based on: TROUGH AND IMPROVED SCR P: 1. Begin Vancomycin 1000 mg IV q12h 2. Follow up Trough level on 01/27/21 at 1630 3. Pharmacy will continue to monitor, follow and adjust therapy as needed. CHECO BROWN RPH, 01/26/21 0445 Signed: 01/26/21 at 0445 by CHECO BROWN RPH PHA
[2021-01-26] MEDS ORDERED: VANCOMYCIN 1 GM in IV NORMAL SALINE 250ML 250 ML IV SCH (05:00)
[2021-01-26 07:00] VITALS: BP 96/56
[2021-01-26] MEDS: LORazepam 0.5 MG TABLET PO PRN ×2 (08:15→13:57)
[2021-01-26] MEDS: LACTOBACILLUS RHAMNOSUS GG 1 CAPSULE. PO SCH ×2 (08:16→20:28)
--- NOTE | 2021-01-26 10:04 | PDOC ---
PROGRESS NOTES Date of Service DATE: 01/26/21 TIME: 10:01 Subjective Subjective Problems overnight: Left foot and ankle still moderately swollen laterally, still painful, complains of a headache and also itching from hydrocodone Objective Vital Signs Vital Signs Date Time Temp Pulse Resp B/P (MAP) Pulse Ox O2 Delivery O2 Flow Rate FiO2 01/26/21 08:15 100 Nasal Cannula 2.0 01/26/21 07:00 99.8 110 18 96/56 (69) 99.8 Physical Exam Left lateral foot and posterior lateral ankle appears somewhat bruised. No crepitance or fluctuance palpable. She can still wiggle her toes and move the ankle with pain, no worse than her previous exam Labs Laboratory Tests Test 01/24/21 14:45 01/24/21 16:15 01/24/21 17:08 01/25/21 04:55 White Blood Count 24.8 x10^3/uL (4.0-11.0) 24.3 x10^3/uL (4.0-11.0) Red Blood Count 4.62 x10^6/uL (3.50-5.40) 4.11 x10^6/uL (3.50-5.40) Hemoglobin 8.9 g/dL (12.0-15.5) 7.9 g/dL (12.0-15.5) Hematocrit 29.5 % (36.0-47.0) 28.1 % (36.0-47.0) Mean Corpuscular Volume 64 fL (79-100) 68 fL (79-100) Mean Corpuscular Hemoglobin 19 pg (25-35) 19 pg (25-35) Mean Corpuscular Hemoglobin Concent 30 g/dL (31-37) 28 g/dL (31-37) Red Cell Distribution Width 18.9 % (11.5-14.5) 19.1 % (11.5-14.5) Platelet Count 230 x10^3/uL (140-400) 202 x10^3/uL (140-400) Neutrophils (%) (Auto) 93 % (31-73) 92 % (31-73) Lymphocytes (%) (Auto) 2 % (24-48) 3 % (24-48) Monocytes (%) (Auto) 5 % (0-9) 5 % (0-9) Eosinophils (%) (Auto) 0 % (0-3) 0 % (0-3) Basophils (%) (Auto) 0 % (0-3) 0 % (0-3) Neutrophils # (Auto) 23.0 x10^3/uL (1.8-7.7) 22.4 x10^3/uL (1.8-7.7) Lymphocytes # (Auto) 0.5 x10^3/uL (1.0-4.8) 0.7 x10^3/uL (1.0-4.8) Monocytes # (Auto) 1.2 x10^3/uL (0.0-1.1) 1.1 x10^3/uL (0.0-1.1) Eosinophils # (Auto) 0.0 x10^3/uL (0.0-0.7) 0.0 x10^3/uL (0.0-0.7) Basophils # (Auto) 0.0 x10^3/uL (0.0-0.2) 0.1 x10^3/uL (0.0-0.2) Segmented Neutrophils % 82 % (35-66) Band Neutrophils % 11 % (0-9) Lymphocytes % 2 % (24-48) Monocytes % 5 % (0-10) Platelet Estimate Adequate (ADEQUATE) Polychromasia Slight Hypochromasia Mod Anisocytosis Slight Microcytosis Marked Erythrocyte Sedimentation Rate 22 (0-25) Sodium Level 135 mmol/L (136-145) 140 mmol/L (136-145) Potassium Level 3.0 mmol/L (3.5-5.1) 2.9 mmol/L (3.5-5.1) Chloride Level 101 mmol/L (98-107) 106 mmol/L (98-107) Carbon Dioxide Level 20 mmol/L (21-32) 19 mmol/L (21-32) Anion Gap 14 (6-14) 15 (6-14) Blood Urea Nitrogen 7 mg/dL (7-20) 7 mg/dL (7-20) Creatinine 1.2 mg/dL (0.6-1.0) 1.1 mg/dL (0.6-1.0) Estimated GFR (Cockcroft-Gault) 60.8 67.3 BUN/Creatinine Ratio 6 (6-20) Glucose Level 90 mg/dL (70-99) 83 mg/dL (70-99) Lactic Acid Level 2.5 mmol/L (0.4-2.0) 2.2 mmol/L (0.4-2.0) Calcium Level 8.4 mg/dL (8.5-10.1) 7.2 mg/dL (8.5-10.1) Total Bilirubin 1.5 mg/dL (0.2-1.0) Aspartate Amino Transf (AST/SGOT) 15 U/L (15-37) Alanine Aminotransferase (ALT/SGPT) 15 U/L (14-59) Alkaline Phosphatase 49 U/L (46-116) C-Reactive Protein, Quantitative 173.8 mg/L (0-3.3) Total Protein 7.2 g/dL (6.4-8.2) Albumin 3.2 g/dL (3.4-5.0) Albumin/Globulin Ratio 0.8 (1.0-1.7) Bedside Urine HCG, Qualitative Hcg negative (Negative) SARS-CoV-2 RNA ([place]) Negative (Negative) SARS-CoV-2 Antigen (Rapid) Negative (NEGATIVE) Magnesium Level 1.8 mg/dL (1.8-2.4) Test 01/26/21 02:35 Sodium Level 141 mmol/L (136-145) Potassium Level 3.1 mmol/L (3.5-5.1) Chloride Level 107 mmol/L (98-107) Carbon Dioxide Level 24 mmol/L (21-32) Anion Gap 10 (6-14) Blood Urea Nitrogen 5 mg/dL (7-20) Creatinine 0.9 mg/dL (0.6-1.0) Estimated GFR (Cockcroft-Gault) 84.8 Glucose Level 71 mg/dL (70-99) Calcium Level 7.4 mg/dL (8.5-10.1) Vancomycin Level Trough 3.2 mcg/mL (10.0-20.0) Vancomycin Last Dose Date Vancomycin Last Dose Time Laboratory Tests Test 01/26/21 02:35 Sodium Level 141 mmol/L (136-145) Potassium Level 3.1 mmol/L (3.5-5.1) Chloride Level 107 mmol/L (98-107) Carbon Dioxide Level 24 mmol/L (21-32) Anion Gap 10 (6-14) Blood Urea Nitrogen 5 mg/dL (7-20) Creatinine 0.9 mg/dL (0.6-1.0) Estimated GFR (Cockcroft-Gault) 84.8 Glucose Level 71 mg/dL (70-99) Calcium Level 7.4 mg/dL (8.5-10.1) Vancomycin Level Trough 3.2 mcg/mL (10.0-20.0) Vancomycin Last Dose Date Vancomycin Last Dose Time Assessment Assessment Nonoperative treatment of left ankle abrasion and cellulitis Plan Plan of Care I am submitting an infectious disease consult on her, she had no evidence of abscess or necrotizing fasciitis on CT scan, any infection issues are more localized to the lateral left foot and ankle but no clear abscess palpable and therefore not a clear surgical indication currently Ordered ibuprofen for headache and generalized inflammation as she complained of some itching from hydrocodone Justicifation of Admission Dx: Justifications for Admission: Justification of Admission Dx: N/A BERLIN FERNANDES MD Jan 26, 2021 10:04
[2021-01-26 11:00] VITALS: BP 99/55
[2021-01-26] MEDS ORDERED: FAMOTIDINE 20 MG TABLET. PO ONE (11:00)
--- NOTE | 2021-01-26 11:12 | PDOC ---
[facility] PROGRESS NOTE Date of Service DOS: DATE: 01/26/21 TIME: 10:46 Chief Complaint Chief Complaint Assessment/Plan Sepsis Acute left foot cellulitis secondary to trauma ELO due to vasomotor nephropathy Lactic acidemia Reactive leukocytosis Mild hyponatremia Mild hypokalemia Microcytic anemia, likely due to OLIVE Admit to hospitalist for further management Surgery consult Continue empiric IV antibiotics Continue clindamycin for antitoxin effect IV and p.o. electrolyte replacement Consider ferritin level Continue IV fluids Heparin for DVT prophylaxis Regular diet CODE STATUS FULL Discussed with RN and SW Disposition inpatient management as above DPOA: Carlotta Jack History of Present Illness History of Present Illness Ms Jack is a 40 yo female who presents with left foot and ankle pain. 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 Had a scrape on the back of her ankle. She put antibiotic ointment and had a bandage. Over 24 hours began having quickly advancing redness, swelling, and increasing pain. Overnight complained of subjective fever, chills, nausea, vomiting. She attributes her nausea and vomiting to a "bad" chicken salad from [employer]. 01/25: No acute events overnight. Patient seen and examined bedside. Continues to have pain in her left lower extremity. Progression of her redness has not worsened. Ortho evaluated and continues to recommend nonsurgical management. Continue with IV antibiotics. Patient's chart, labs, images were reviewed and discussed with RN Vancomycin trough low. Still with significant pain and now blistering around her lateral left ankle. ID consulted by ortho. C/o headache and nausea today as well. Vitals/I&O Vitals/I&O: Vital Signs Date Time Temp Pulse Resp B/P (MAP) Pulse Ox O2 Delivery O2 Flow Rate FiO2 01/26/21 08:15 100 Nasal Cannula 2.0 01/26/21 07:00 99.8 110 18 96/56 (69) 99.8 I & O 01/25/21 01/25/21 01/26/21 15:00 23:00 07:00 Intake Total 480 ml 620 ml 1730 ml Output Total 600 ml Balance 480 ml 620 ml 1130 ml Physical Exam General: Alert, Oriented X3, Cooperative Heart: Regular rate Lungs: Clear Abdomen: Normal bowel sounds, No tenderness, Other (Extremities: Tight skin over the left ankle is warm, erythematous, and edematous when compared to the contralateral foot. Erythema streaking up the left gallardo and calf. She has severe ankle pain with passive range of motion. DP pulse intact. Brisk cap refill.) Labs Labs: Laboratory Tests Test 01/26/21 02:35 Sodium Level 141 mmol/L (136-145) Potassium Level 3.1 mmol/L (3.5-5.1) Chloride Level 107 mmol/L (98-107) Carbon Dioxide Level 24 mmol/L (21-32) Anion Gap 10 (6-14) Blood Urea Nitrogen 5 mg/dL (7-20) Creatinine 0.9 mg/dL (0.6-1.0) Estimated GFR (Cockcroft-Gault) 84.8 Glucose Level 71 mg/dL (70-99) Calcium Level 7.4 mg/dL (8.5-10.1) Vancomycin Level Trough 3.2 mcg/mL (10.0-20.0) Vancomycin Last Dose Date Vancomycin Last Dose Time Assessment and Plan Assessmemt and Plan Problems Medical Problems: (1) Cellulitis Status: Acute (2) Sepsis Status: Acute Comment Review of Relevant I have reviewed the following items carmel (where applicable) has been applied. Medications: Current Medications Medications (Trade) Dose Ordered Sig/Patricia Route PRN Reason Start Time Stop Time Status Last Admin Dose Admin Vancomycin HCl (Vancomycin Trough Level) 1 each 1X ONCE MC 01/26/21 02:30 01/26/21 02:31 DC 01/26/21 02:30 Lactobacillus Rhamnosus (Culturelle) 1 cap BID PO 01/25/21 21:00 01/26/21 08:16 Potassium Chloride (Klor-Con) 40 meq 1X ONCE PO 01/25/21 11:00 01/25/21 11:01 DC 01/25/21 11:44 Potassium Chloride (Klor-Con) 40 meq 1X ONCE PO 01/25/21 16:00 01/25/21 16:01 DC 01/25/21 16:54 Cefepime HCl (Maxipime) 1 gm Q24H IVP 01/25/21 11:00 01/25/21 11:44 Vancomycin HCl 1 gm/Sodium Chloride 250 ml @ 250 mls/hr Q12H IV 01/26/21 05:00 10/11/21 04:41 Justifications for Admission Other Justification Foot infection SUSIE DIEGO MD Jan 26, 2021 11:12
--- NOTE | 2021-01-26 11:29 | CONS ---
DATE OF CONSULTATION: 01/26/2021 REQUESTING PHYSICIAN: Hollis Ma MD REASON FOR CONSULTATION: Left foot cellulitis. HISTORY OF PRESENT ILLNESS: This is a 40-year-old -[place] female who said at work she got hit by a cart, sustained a minor laceration. She was fine on that day. She says, next day, she started having pain, swelling and then it became red and she came in. The patient is diagnosed with cellulitis. The patient had a x-ray and CT of the lower extremity, which was negative for any fracture. The patient is complaining of lot of pain. Has had fever up to 100.2 and the white count of 24,000. The patient is elevating the legs with lot of pain and does not even allow to touch. Denies any nausea, vomiting, diarrhea. Denies any chest pain, shortness of breath, abdominal pain, urinary symptoms. PAST MEDICAL HISTORY: Positive for she has had . SOCIAL HISTORY: Positive for smoking. No alcohol use or drug use. ALLERGIES: No known drug allergies. CURRENT MEDICATIONS: Reviewed. The patient is on vancomycin and cefepime. REVIEW OF SYSTEMS: As in HPI. All other systems reviewed and are negative. PHYSICAL EXAMINATION: GENERAL: Alert, oriented female, not in distress. VITAL SIGNS: Stable, T-max 100.2. HEENT: Both pupils are round and reacting. No conjunctival lesion. No lesion in the mouth. NECK: Supple. No JVP, no lymphadenopathy. LUNGS: Clear. HEART: S1, S2, regular. ABDOMEN: Soft, nontender. No organomegaly. EXTREMITIES: No edema, cyanosis. Left foot and ankle is swollen and red. She has had some what appears to be minor skin breakdown, which has actually closed now on the lateral part and the redness is on the foot, ankle and going into the lower part of the leg. There is no localized induration. There is no pus pointing. NEUROLOGIC: Alert, awake, appropriate. No focal neurologic deficit. LABORATORY DATA: White count is 24,000. BUN and creatinine is normal. Blood culture is negative. IMPRESSION: 1. Left lower extremity cellulitis after having trauma at work with minor laceration. 2. Leukocytosis. 3. Fever. RECOMMEND: Change vancomycin and cefepime to Rocephin, leg elevation, supportive care and we will continue to follow. JOSE DR: ABIODUN/dana TID: [id number]
[2021-01-26] MEDS: KETOROLAC 30 MG/ML VIAL. IVP PRN (11:30)
--- NOTE | 2021-01-26 11:40 | NUR ---
SW following. Discussed with RN, pt from home, room air, regular diet. COVID-19 negative. Ortho and ID following. Med Assist following for self pay status. SW will continue to follow.
[2021-01-26] MEDS: cefTRIAXone IV Push 2 GM VIAL. IVP SCH (12:00)
[2021-01-26] MEDS: FAMOTIDINE 20 MG TABLET. PO SCH (12:08)
[2021-01-26] MEDS ORDERED: POTASSIUM CHLORIDE 20 MEQ TABLET.ER. PO ONE (13:45)
[2021-01-26 15:00] VITALS: BP 98/59
[2021-01-26] MEDS: IBUPROFEN 400 MG TABLET. PO PRN (18:41)
[2021-01-26 19:00] VITALS: BP 97/64
[2021-01-26] MEDS: ENOXAPARIN 40 MG/0.4 ML SYRINGE. SQ SCH (20:28)
[2021-01-26 22:54] VITALS: BP 109/52
[2021-01-27] MEDS: KETOROLAC 30 MG/ML VIAL. IVP PRN (00:55)
[2021-01-27] MEDS: PROCHLORPERAZINE 10 MG/2 ML VIAL. IV PRN (00:55)
[2021-01-27 03:24] VITALS: BP 90/52
[2021-01-27] MEDS: IV NORMAL SALINE 1000ML BAG 1,000 ML IV SCH ×2 (06:05→17:17)
[2021-01-27 07:00] VITALS: BP 103/64
--- NOTE | 2021-01-27 07:19 | PDOC ---
[facility] PROGRESS NOTE Date of Service DOS: DATE: 01/27/21 TIME: 07:19 Chief Complaint Chief Complaint Assessment/Plan Sepsis Acute left foot cellulitis secondary to trauma ELO due to vasomotor nephropathy Lactic acidemia Reactive leukocytosis Mild hyponatremia Mild hypokalemia Microcytic anemia, likely due to OLIVE Admit to hospitalist for further management Surgery consult Continue empiric IV antibiotics Continue clindamycin for antitoxin effect IV and p.o. electrolyte replacement Consider ferritin level Continue IV fluids Heparin for DVT prophylaxis Regular diet CODE STATUS FULL Discussed with RN and SW Disposition inpatient management as above DPOA: Carlotta Jack History of Present Illness History of Present Illness Ms Jack is a 40 yo female who presents with left foot and ankle pain. 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 Had a scrape on the back of her ankle. She put antibiotic ointment and had a bandage. Over 24 hours began having quickly advancing redness, swelling, and increasing pain. Overnight complained of subjective fever, chills, nausea, vomiting. She attributes her nausea and vomiting to a "bad" chicken salad from [employer]. 01/25: No acute events overnight. Patient seen and examined bedside. Continues to have pain in her left lower extremity. Progression of her redness has not worsened. Ortho evaluated and continues to recommend nonsurgical management. Continue with IV antibiotics. Patient's chart, labs, images were reviewed and discussed with RN 01/26: Vancomycin trough low. Still with significant pain and now blistering around her lateral left ankle. ID consulted by ortho. C/o headache and nausea today as well. Afebrile overnight. No nausea vomiting or diarrhea though she does have some epigastric fullness. Headaches improved, but foot pain is minimally improved. Swelling is minimally improved the redness and erythema seem to be increased including her calf up to her popliteal fossa. There is good skin wrinkling and some blistering laterally on the malleolus. WBC still elevated. K 3 today. Vitals/I&O Vitals/I&O: Vital Signs Date Time Temp Pulse Resp B/P (MAP) Pulse Ox O2 Delivery O2 Flow Rate FiO2 01/27/21 03:24 98.9 101 90/52 (65) Nasal Cannula 2.0 98.9 01/26/21 22:54 17 100 I & O 01/26/21 01/26/21 01/27/21 15:00 23:00 07:00 Intake Total 1000 ml 950 ml 800 ml Output Total 1500 ml 200 ml Balance 1000 ml -550 ml 600 ml Physical Exam General: Alert, Oriented X3, Cooperative Heart: Regular rate Lungs: Clear Abdomen: Normal bowel sounds, No tenderness, Other (Extremities: Tight skin over the left ankle is warm, erythematous, and edematous when compared to the contralateral foot. Erythema streaking up the left gallardo and calf. She has severe ankle pain with passive range of motion. DP pulse intact. Brisk cap re fill.) Assessment and Plan Assessmemt and Plan Problems Medical Problems: (1) Cellulitis Status: Acute (2) Sepsis Status: Acute Comment Review of Relevant I have reviewed the following items carmel (where applicable) has been applied. Medications: Current Medications Medications (Trade) Dose Ordered Sig/Patricia Route PRN Reason Start Time Stop Time Status Last Admin Dose Admin Ketorolac Tromethamine (Toradol 30mg Vial) 30 mg PRN Q6HRS PRN IVP INFLAMMATION 01/26/21 11:00 01/27/21 00:55 Famotidine (Pepcid) 20 mg 1X ONCE PO 01/26/21 11:00 01/26/21 11:01 DC 01/26/21 11:00 Famotidine (Pepcid) 20 mg BID PO 01/26/21 21:00 01/26/21 12:08 Ceftriaxone Sodium (Rocephin) 2 gm Q24H IVP 01/26/21 12:00 01/26/21 12:00 Ibuprofen (Motrin) 400 mg PRN Q6HRS PRN PO INFLAMMATION 01/26/21 09:00 01/26/21 18:41 Potassium Chloride (Klor-Con) 40 meq 1X ONCE PO 01/26/21 13:45 01/26/21 13:46 DC 01/26/21 14:25 Justifications for Admission Other Justification Foot infection SUSIE DIEGO MD Jan 27, 2021 07:19
[2021-01-27 07:57] LABS: BASO % 0 % (0-3); EOS # 0.3 x10^3/uL (0.0-0.7); EOS % 2 % (0-3); HEMATOCRIT 26.7 % (36.0-47.0); LYMPH # 0.6 x10^3/uL (1.0-4.8); LYMPH % 3 % (24-48); MEAN CORPUSCULAR HEMOGLOBIN 19 pg (25-35); MEAN CORPUSCULAR HGB CONC 30 g/dL (31-37); MEAN CORPUSCULAR VOLUME 64 fL (79-100); MONO # 0.9 x10^3/uL (0.0-1.1); MONO % 5 % (0-9); NEUT # 16.8 x10^3/uL (1.8-7.7); NEUT % 90 % (31-73); PLATELET COUNT 232 x10^3/uL (140-400); RED BLOOD COUNT 4.15 x10^6/uL (3.50-5.40); RED CELL DISTRIBUTION WIDTH 19.2 % (11.5-14.5); WHITE BLOOD COUNT 18.7 x10^3/uL (4.0-11.0)
[2021-01-27 08:11] LABS: CALCIUM 7.8 mg/dL (8.5-10.1); CREATININE 0.8 mg/dL (0.6-1.0); GFR 97.1; MAGNESIUM 2.1 mg/dL (1.8-2.4)
[2021-01-27] MEDS: LACTOBACILLUS RHAMNOSUS GG 1 CAPSULE. PO SCH ×2 (09:19→22:03)
[2021-01-27] MEDS: FAMOTIDINE 20 MG TABLET. PO SCH ×2 (09:19→22:04)
[2021-01-27] MEDS: HYDROcodone/APAP 5/325MG 1 TAB TABLET PO PRN ×2 (09:28→19:22)
--- NOTE | 2021-01-27 10:42 | PDOC ---
Infectious Disease Note Subjective Subjective Patient is feeling slightly better ROS ROS No nausea vomiting diarrhea or fever Vital Sign Vital Signs Vital Signs Date Time Temp Pulse Resp B/P (MAP) Pulse Ox O2 Delivery O2 Flow Rate FiO2 01/27/21 07:40 Nasal Cannula 2.0 01/27/21 07:00 98.3 110 18 103/64 (77) 100 98.3 Physical Exam PHYSICAL EXAM GENERAL: Alert, oriented female, not in distress. VITAL SIGNS: Stable, HEENT: Both pupils are round and reacting. No conjunctival lesion. No lesion in the mouth. NECK: Supple. No JVP, no lymphadenopathy. LUNGS: Clear. HEART: S1, S2, regular. ABDOMEN: Soft, nontender. No organomegaly. EXTREMITIES: No edema, cyanosis. Left foot and ankle is swollen and red. She has had some what appears to be minor skin breakdown, which has actually closed now on the lateral part and the redness is on the foot, ankle and going into the lower part of the leg. There is no localized induration. There is no pus pointing. NEUROLOGIC: Alert, awake, appropriate. No focal neurologic deficit. Labs Lab Laboratory Tests Test 01/27/21 07:05 White Blood Count 18.7 x10^3/uL (4.0-11.0) Red Blood Count 4.15 x10^6/uL (3.50-5.40) Hemoglobin 8.0 g/dL (12.0-15.5) Hematocrit 26.7 % (36.0-47.0) Mean Corpuscular Volume 64 fL (79-100) Mean Corpuscular Hemoglobin 19 pg (25-35) Mean Corpuscular Hemoglobin Concent 30 g/dL (31-37) Red Cell Distribution Width 19.2 % (11.5-14.5) Platelet Count 232 x10^3/uL (140-400) Neutrophils (%) (Auto) 90 % (31-73) Lymphocytes (%) (Auto) 3 % (24-48) Monocytes (%) (Auto) 5 % (0-9) Eosinophils (%) (Auto) 2 % (0-3) Basophils (%) (Auto) 0 % (0-3) Neutrophils # (Auto) 16.8 x10^3/uL (1.8-7.7) Lymphocytes # (Auto) 0.6 x10^3/uL (1.0-4.8) Monocytes # (Auto) 0.9 x10^3/uL (0.0-1.1) Eosinophils # (Auto) 0.3 x10^3/uL (0.0-0.7) Basophils # (Auto) 0.0 x10^3/uL (0.0-0.2) Sodium Level 143 mmol/L (136-145) Potassium Level 3.0 mmol/L (3.5-5.1) Chloride Level 110 mmol/L (98-107) Carbon Dioxide Level 25 mmol/L (21-32) Anion Gap 8 (6-14) Blood Urea Nitrogen 3 mg/dL (7-20) Creatinine 0.8 mg/dL (0.6-1.0) Estimated GFR (Cockcroft-Gault) 97.1 Glucose Level 132 mg/dL (70-99) Calcium Level 7.8 mg/dL (8.5-10.1) Magnesium Level 2.1 mg/dL (1.8-2.4) Micro Microbiology 01/24/21 Blood Culture - Preliminary, Resulted NO GROWTH AFTER 2 DAYS Objective Assessment IMPRESSION: 1. Left lower extremity cellulitis after having trauma at work with minor skin breakdowns 2. Leukocytosis. 3. Fever. Plan Plan of Care cont antibiotics cont leg elevation YOLETTE DAN MD Jan 27, 2021 10:42
[2021-01-27 11:00] VITALS: BP 107/71
[2021-01-27] MEDS: cefTRIAXone IV Push 2 GM VIAL. IVP SCH (11:16)
[2021-01-27] MEDS: LINEZOLID 600 MG TABLET PO SCH ×2 (11:16→22:04)
[2021-01-27] MEDS ORDERED: POTASSIUM BICARB 20 MEQ EFFERVESCENT TABLET. PO ONE (12:15)
[2021-01-27] MEDS ORDERED: MAG HYDROX/ALUMINUM HYD/SIMETH 30 ML ORAL.SUSP PO PRN (12:15)
--- NOTE | 2021-01-27 14:16 | PDOC ---
PROGRESS NOTES Date of Service DATE: 01/27/21 TIME: 14:14 Subjective Subjective Problems overnight: Complains of left foot and ankle pain that she says is more tolerable but gets up to about a 7-8 if she gets up and around, overall looks and acts better today than previous rounding visits Objective Vital Signs Vital Signs Date Time Temp Pulse Resp B/P (MAP) Pulse Ox O2 Delivery O2 Flow Rate FiO2 01/27/21 11:00 99.7 112 18 107/71 (83) 100 Room Air 99.7 01/27/21 07:40 2.0 Physical Exam Left foot and ankle still swollen particularly laterally area is bruised and a couple of small blisters cellulitis appears to be less noticeable than previous and calf is soft and nontender proximally no pain out of proportion with motion of the ankle or wiggling the toes Labs Laboratory Tests Test 01/26/21 02:35 01/27/21 07:05 Sodium Level 141 mmol/L (136-145) 143 mmol/L (136-145) Potassium Level 3.1 mmol/L (3.5-5.1) 3.0 mmol/L (3.5-5.1) Chloride Level 107 mmol/L (98-107) 110 mmol/L (98-107) Carbon Dioxide Level 24 mmol/L (21-32) 25 mmol/L (21-32) Anion Gap 10 (6-14) 8 (6-14) Blood Urea Nitrogen 5 mg/dL (7-20) 3 mg/dL (7-20) Creatinine 0.9 mg/dL (0.6-1.0) 0.8 mg/dL (0.6-1.0) Estimated GFR (Cockcroft-Gault) 84.8 97.1 Glucose Level 71 mg/dL (70-99) 132 mg/dL (70-99) Calcium Level 7.4 mg/dL (8.5-10.1) 7.8 mg/dL (8.5-10.1) Vancomycin Level Trough 3.2 mcg/mL (10.0-20.0) Vancomycin Last Dose Date Vancomycin Last Dose Time White Blood Count 18.7 x10^3/uL (4.0-11.0) Red Blood Count 4.15 x10^6/uL (3.50-5.40) Hemoglobin 8.0 g/dL (12.0-15.5) Hematocrit 26.7 % (36.0-47.0) Mean Corpuscular Volume 64 fL (79-100) Mean Corpuscular Hemoglobin 19 pg (25-35) Mean Corpuscular Hemoglobin Concent 30 g/dL (31-37) Red Cell Distribution Width 19.2 % (11.5-14.5) Platelet Count 232 x10^3/uL (140-400) Neutrophils (%) (Auto) 90 % (31-73) Lymphocytes (%) (Auto) 3 % (24-48) Monocytes (%) (Auto) 5 % (0-9) Eosinophils (%) (Auto) 2 % (0-3) Basophils (%) (Auto) 0 % (0-3) Neutrophils # (Auto) 16.8 x10^3/uL (1.8-7.7) Lymphocytes # (Auto) 0.6 x10^3/uL (1.0-4.8) Monocytes # (Auto) 0.9 x10^3/uL (0.0-1.1) Eosinophils # (Auto) 0.3 x10^3/uL (0.0-0.7) Basophils # (Auto) 0.0 x10^3/uL (0.0-0.2) Magnesium Level 2.1 mg/dL (1.8-2.4) Laboratory Tests Test 01/27/21 07:05 White Blood Count 18.7 x10^3/uL (4.0-11.0) Red Blood Count 4.15 x10^6/uL (3.50-5.40) Hemoglobin 8.0 g/dL (12.0-15.5) Hematocrit 26.7 % (36.0-47.0) Mean Corpuscular Volume 64 fL (79-100) Mean Corpuscular Hemoglobin 19 pg (25-35) Mean Corpuscular Hemoglobin Concent 30 g/dL (31-37) Red Cell Distribution Width 19.2 % (11.5-14.5) Platelet Count 232 x10^3/uL (140-400) Neutrophils (%) (Auto) 90 % (31-73) Lymphocytes (%) (Auto) 3 % (24-48) Monocytes (%) (Auto) 5 % (0-9) Eosinophils (%) (Auto) 2 % (0-3) Basophils (%) (Auto) 0 % (0-3) Neutrophils # (Auto) 16.8 x10^3/uL (1.8-7.7) Lymphocytes # (Auto) 0.6 x10^3/uL (1.0-4.8) Monocytes # (Auto) 0.9 x10^3/uL (0.0-1.1) Eosinophils # (Auto) 0.3 x10^3/uL (0.0-0.7) Basophils # (Auto) 0.0 x10^3/uL (0.0-0.2) Sodium Level 143 mmol/L (136-145) Potassium Level 3.0 mmol/L (3.5-5.1) Chloride Level 110 mmol/L (98-107) Carbon Dioxide Level 25 mmol/L (21-32) Anion Gap 8 (6-14) Blood Urea Nitrogen 3 mg/dL (7-20) Creatinine 0.8 mg/dL (0.6-1.0) Estimated GFR (Cockcroft-Gault) 97.1 Glucose Level 132 mg/dL (70-99) Calcium Level 7.8 mg/dL (8.5-10.1) Magnesium Level 2.1 mg/dL (1.8-2.4) Assessment Assessment Nonoperative management left foot cellulitis with abrasion heel Plan Plan of Care Continue medical management of left foot cellulitis, no surgical indication at present. Discussed with Dr. Bales of infectious disease and will continue to monitor Justicifation of Admission Dx: Justifications for Admission: Justification of Admission Dx: N/A BERLIN FERNANDES MD Jan 27, 2021 14:16
[2021-01-27 15:00] VITALS: BP 118/70
[2021-01-27] MEDS: ACETAMINOPHEN 325 MG TABLET. PO PRN (16:20)
[2021-01-27 19:00] VITALS: BP 107/74
[2021-01-27] MEDS: ENOXAPARIN 40 MG/0.4 ML SYRINGE. SQ SCH (22:04)
[2021-01-27 23:23] VITALS: BP 104/63
[2021-01-28] MEDS: diphenhydrAMINE HCL 25 MG CAPSULE PO PRN (01:24)
[2021-01-28] MEDS: IV NORMAL SALINE 1000ML BAG 1,000 ML IV SCH ×3 (01:25→22:00)
[2021-01-28 03:00] VITALS: BP 114/72
[2021-01-28] MEDS: MORPHINE SULFATE 2 MG/ML INJ. IV PRN (04:27)
[2021-01-28 07:00] VITALS: BP 113/69
--- NOTE | 2021-01-28 07:30 | PDOC ---
[facility] [facility] PROGRESS NOTE Date of Service DOS: DATE: 01/28/21 TIME: 07:29 Chief Complaint Chief Complaint Assessment/Plan Sepsis Acute left foot cellulitis secondary to trauma ELO due to vasomotor nephropathy Lactic acidemia Reactive leukocytosis Mild hyponatremia Mild hypokalemia Microcytic anemia, likely due to OLIVE Admit to hospitalist for further management Surgery consult Continue empiric IV antibiotics Continue clindamycin for antitoxin effect IV and p.o. electrolyte replacement Consider ferritin level Continue IV fluids Heparin for DVT prophylaxis Regular diet CODE STATUS FULL Discussed with RN and SW Disposition inpatient management as above DPOA: Carlotta Jack History of Present Illness History of Present Illness Ms Jack is a 40 yo female who presents with left foot and ankle pain. 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 Had a scrape on the back of her ankle. She put antibiotic ointment and had a bandage. Over 24 hours began having quickly advancing redness, swelling, and increasing pain. Overnight complained of subjective fever, chills, nausea, vomiting. She attributes her nausea and vomiting to a "bad" chicken salad from [employer]. 01/25: No acute events overnight. Patient seen and examined bedside. Continues to have pain in her left lower extremity. Progression of her redness has not worsened. Ortho evaluated and continues to recommend nonsurgical management. Continue with IV antibiotics. Patient's chart, labs, images were reviewed and discussed with RN 01/26: Vancomycin trough low. Still with significant pain and now blistering around her lateral left ankle. ID consulted by ortho. C/o headache and nausea today as well. 01/27: Afebrile overnight. No nausea vomiting or diarrhea though she does have some epigastric fullness. Headaches improved, but foot pain is minimally improved. Swelling is minimally improved the redness and erythema seem to be increased including her calf up to her popliteal fossa. There is good skin wrinkling and some blistering laterally on the malleolus. WBC still elevated. K 3 today. Febrile 101.4 F overnight. Cramping of neck and back today, K 3.2 today. Pain in left leg still severe, a little more blistering near lateral malleolus. Vitals/I&O Vitals/I&O: Vital Signs Date Time Temp Pulse Resp B/P (MAP) Pulse Ox O2 Delivery O2 Flow Rate FiO2 01/28/21 03:00 99.6 95 20 114/72 (86) 100 Room Air 99.6 01/27/21 20:04 2.0 I & O 01/27/21 01/27/21 01/28/21 15:00 23:00 07:00 Intake Total 1155 ml 1450 ml Output Total 200 ml Balance 955 ml 1450 ml Physical Exam Physical Exam: GENERAL: Alert, oriented female, not in distress. VITAL SIGNS: Stable, HEENT: Both pupils are round and reacting. No conjunctival lesion. No lesion in the mouth. NECK: Supple. No JVP, no lymphadenopathy. LUNGS: Clear. HEART: S1, S2, regular. ABDOMEN: Soft, nontender. No organomegaly. EXTREMITIES: No edema, cyanosis. Left foot and ankle is swollen and red. She has had some what appears to be minor skin breakdown, which has actually closed now on the lateral part and the redness is on the foot, ankle and going into the lower part of the leg. There is no localized induration. There is no pus pointing. NEUROLOGIC: Alert, awake, appropriate. No focal neurologic deficit. General: Alert, Oriented X3, Cooperative Heart: Regular rate Lungs: Clear Abdomen: Normal bowel sounds, No tenderness, Other (Extremities: Tight skin over the left ankle is warm, erythematous, and edematous when compared to the contralateral foot. Erythema streaking up the left gallardo and calf. She has severe ankle pain with passive range of motion. DP pulse intact. Brisk cap refill.) Assessment and Plan Assessmemt and Plan Problems Medical Problems: (1) Cellulitis Status: Acute (2) Sepsis Status: Acute Comment Review of Relevant I have reviewed the following items carmel (where applicable) has been applied. Medications: Current Medications Medications (Trade) Dose Ordered Sig/Patricia Route PRN Reason Start Time Stop Time Status Last Admin Dose Admin Linezolid (Zyvox) 600 mg BID PO 01/27/21 11:00 01/27/21 22:04 Potassium Bicarbonate (Potassium Effervescent Tablet) 40 meq 1X ONCE PO 01/27/21 12:15 01/27/21 12:16 DC 01/27/21 12:17 Diphenhydramine HCl (Benadryl) 25 mg PRN Q4HRS PRN PO ITCHING 01/28/21 01:15 01/28/21 01:24 Justifications for Admission Other Justification Foot infection SUSIE DIEGO MD Jan 28, 2021 07:30
[2021-01-28 07:32] LABS: BASO % 0 % (0-3); EOS # 0.2 x10^3/uL (0.0-0.7); EOS % 1 % (0-3); HEMATOCRIT 23.7 % (36.0-47.0); HEMOGLOBIN 7.2 g/dL (12.0-15.5); LYMPH # 1.3 x10^3/uL (1.0-4.8); LYMPH % 8 % (24-48); MEAN CORPUSCULAR HEMOGLOBIN 19 pg (25-35); MEAN CORPUSCULAR HGB CONC 30 g/dL (31-37); MEAN CORPUSCULAR VOLUME 64 fL (79-100); MONO # 1.4 x10^3/uL (0.0-1.1); MONO % 9 % (0-9); NEUT # 13.3 x10^3/uL (1.8-7.7); NEUT % 82 % (31-73); PLATELET COUNT 265 x10^3/uL (140-400); RED BLOOD COUNT 3.72 x10^6/uL (3.50-5.40); RED CELL DISTRIBUTION WIDTH 19.1 % (11.5-14.5); WHITE BLOOD COUNT 16.3 x10^3/uL (4.0-11.0)
[2021-01-28 08:16] LABS: CREATININE 0.8 mg/dL (0.6-1.0); GFR 97.1; POTASSIUM 3.2 mmol/L (3.5-5.1)
[2021-01-28] MEDS: LACTOBACILLUS RHAMNOSUS GG 1 CAPSULE. PO SCH ×2 (09:08→22:26)
[2021-01-28] MEDS: LINEZOLID 600 MG TABLET PO SCH ×2 (09:08→22:26)
[2021-01-28] MEDS: FAMOTIDINE 20 MG TABLET. PO SCH ×2 (09:08→22:26)
[2021-01-28] MEDS ORDERED: POTASSIUM CHLORIDE 20 MEQ TABLET.ER. PO ONE (09:15)
--- NOTE | 2021-01-28 09:43 | PDOC ---
Infectious Disease Note Subjective Subjective Patient did have fever complaining of headache continues to have foot pain ROS ROS No nausea vomiting diarrhea Vital Sign Vital Signs Vital Signs Date Time Temp Pulse Resp B/P (MAP) Pulse Ox O2 Delivery O2 Flow Rate FiO2 01/28/21 07:57 Nasal Cannula 2.0 01/28/21 07:00 100.8 95 18 113/69 (84) 100 100.8 Physical Exam PHYSICAL EXAM GENERAL: Alert, oriented female, not in distress. VITAL SIGNS: Stable, HEENT: Both pupils are round and reacting. No conjunctival lesion. No lesion in the mouth. NECK: Supple. No JVP, no lymphadenopathy. LUNGS: Clear. HEART: S1, S2, regular. ABDOMEN: Soft, nontender. No organomegaly. EXTREMITIES: No edema, cyanosis. Left foot and ankle is swollen and red. She has had some what appears to be minor skin breakdown, which has actually closed now on the lateral part and the redness is on the foot, ankle and going into the lower part of the leg. There is no localized induration. There is no pus pointing. NEUROLOGIC: Alert, awake, appropriate. No focal neurologic deficit. Labs Lab Laboratory Tests Test 01/28/21 06:40 White Blood Count 16.3 x10^3/uL (4.0-11.0) Red Blood Count 3.72 x10^6/uL (3.50-5.40) Hemoglobin 7.2 g/dL (12.0-15.5) Hematocrit 23.7 % (36.0-47.0) Mean Corpuscular Volume 64 fL (79-100) Mean Corpuscular Hemoglobin 19 pg (25-35) Mean Corpuscular Hemoglobin Concent 30 g/dL (31-37) Red Cell Distribution Width 19.1 % (11.5-14.5) Platelet Count 265 x10^3/uL (140-400) Neutrophils (%) (Auto) 82 % (31-73) Lymphocytes (%) (Auto) 8 % (24-48) Monocytes (%) (Auto) 9 % (0-9) Eosinophils (%) (Auto) 1 % (0-3) Basophils (%) (Auto) 0 % (0-3) Neutrophils # (Auto) 13.3 x10^3/uL (1.8-7.7) Lymphocytes # (Auto) 1.3 x10^3/uL (1.0-4.8) Monocytes # (Auto) 1.4 x10^3/uL (0.0-1.1) Eosinophils # (Auto) 0.2 x10^3/uL (0.0-0.7) Basophils # (Auto) 0.0 x10^3/uL (0.0-0.2) Sodium Level 139 mmol/L (136-145) Potassium Level 3.2 mmol/L (3.5-5.1) Chloride Level 106 mmol/L (98-107) Carbon Dioxide Level 25 mmol/L (21-32) Anion Gap 8 (6-14) Blood Urea Nitrogen 3 mg/dL (7-20) Creatinine 0.8 mg/dL (0.6-1.0) Estimated GFR (Cockcroft-Gault) 97.1 Glucose Level 84 mg/dL (70-99) Calcium Level 8.0 mg/dL (8.5-10.1) Iron Level 47 ug/dL (50-170) Total Iron Binding Capacity 339 ug/dL (250-450) Iron Saturation 14 % (15-34) Micro Microbiology 01/24/21 Blood Culture - Preliminary, Resulted NO GROWTH AFTER 2 DAYS Objective Assessment IMPRESSION: 1. Left lower extremity cellulitis after having trauma at work with minor skin breakdowns 2. Leukocytosis. 3. Fever. Plan Plan of Care cont antibiotics cont leg elevation YOLETTE Tan MD Jan 28, 2021 09:43
[2021-01-28] MEDS: POTASSIUM CHLORIDE 10MEQ 100 ML IV SCH ×2 (10:16→12:05)
[2021-01-28] MEDS: ACETAMINOPHEN 325 MG TABLET. PO PRN (10:16)
[2021-01-28] MEDS: CYCLOBENZAPRINE 10 MG TABLET. PO PRN ×2 (10:16→18:41)
[2021-01-28] MEDS: LIDOCAINE (700MG/PATCH) PATCH. TD SCH (10:17)
[2021-01-28 10:21] LABS: MAGNESIUM 1.8 mg/dL (1.8-2.4); PHOSPHORUS 1.4 mg/dL (2.6-4.7)
[2021-01-28] MEDS: HYDROcodone/APAP 5/325MG 1 TAB TABLET PO PRN (10:35)
[2021-01-28 11:00] VITALS: BP 112/56
--- NOTE | 2021-01-28 13:21 | NUR ---
SS following for discharge planning. SS reviewed pt chart and discussed with pt RN. Pt is from home and is currently requiring oxygen at two liters nasal canula. Pt on IV Zosyn. Pt has no home oxygen. Self pay. Med Assist following. SS will continue to follow for discharge planning.
[2021-01-28] MEDS: PIPERACILLIN/TAZOBACTAM 3.375 GM in IV NORMAL SALINE 50ML 50 ML IV SCH ×3 (13:51→22:45)
[2021-01-28 15:00] VITALS: BP 109/68
[2021-01-28] MEDS: traMADol 50 MG TABLET PO PRN ×2 (18:41→22:43)
[2021-01-28 19:00] VITALS: BP 104/62
[2021-01-28] MEDS: ENOXAPARIN 40 MG/0.4 ML SYRINGE. SQ SCH (21:00)
[2021-01-28] MEDS ORDERED: LINEZOLID 600 MG TABLET PO SCH (21:00)
[2021-01-28 22:35] VITALS: BP 116/65
[2021-01-29 03:00] VITALS: BP 117/74
[2021-01-29] MEDS: IV NORMAL SALINE 1000ML BAG 1,000 ML IV SCH ×2 (04:38→21:32)
[2021-01-29] MEDS: PIPERACILLIN/TAZOBACTAM 3.375 GM in IV NORMAL SALINE 50ML 50 ML IV SCH ×3 (06:32→16:22)
[2021-01-29] MEDS: traMADol 50 MG TABLET PO PRN ×4 (06:35→21:26)
[2021-01-29 07:00] VITALS: BP 115/69
[2021-01-29 08:03] LABS: BASO # 0.1 x10^3/uL (0.0-0.2); BASO % 1 % (0-3); EOS # 0.3 x10^3/uL (0.0-0.7); EOS % 2 % (0-3); HEMATOCRIT 24.3 % (36.0-47.0); HEMOGLOBIN 7.5 g/dL (12.0-15.5); LYMPH # 1.8 x10^3/uL (1.0-4.8); LYMPH % 13 % (24-48); MEAN CORPUSCULAR HEMOGLOBIN 20 pg (25-35); MEAN CORPUSCULAR HGB CONC 31 g/dL (31-37); MEAN CORPUSCULAR VOLUME 64 fL (79-100); MONO # 1.2 x10^3/uL (0.0-1.1); MONO % 9 % (0-9); NEUT # 10.1 x10^3/uL (1.8-7.7); NEUT % 75 % (31-73); PLATELET COUNT 304 x10^3/uL (140-400); RED BLOOD COUNT 3.83 x10^6/uL (3.50-5.40); RED CELL DISTRIBUTION WIDTH 19.5 % (11.5-14.5); WHITE BLOOD COUNT 13.4 x10^3/uL (4.0-11.0)
--- NOTE | 2021-01-29 08:11 | PDOC ---
Infectious Disease Note Subjective Subjective Feeling much better now ROS ROS No nausea vomiting diarrhea fever has improved pain in the leg has improved Vital Sign Vital Signs Vital Signs Date Time Temp Pulse Resp B/P (MAP) Pulse Ox O2 Delivery O2 Flow Rate FiO2 01/29/21 07:37 Room Air 01/29/21 07:00 99.0 89 17 115/69 (84) 98 99.0 01/28/21 19:00 2.0 Physical Exam PHYSICAL EXAM GENERAL: Alert, oriented female, not in distress. VITAL SIGNS: Stable, HEENT: Both pupils are round and reacting. No conjunctival lesion. No lesion in the mouth. NECK: Supple. No JVP, no lymphadenopathy. LUNGS: Clear. HEART: S1, S2, regular. ABDOMEN: Soft, nontender. No organomegaly. EXTREMITIES: No edema, cyanosis. Left foot and ankle is swollen and red. She has had some what appears to be minor skin breakdown, which has actually closed now on the lateral part and the redness is on the foot, ankle and going into the lower part of the leg. There is no localized induration. There is no pus pointing. Large blister has developed NEUROLOGIC: Alert, awake, appropriate. No focal neurologic deficit. Labs Lab Laboratory Tests Test 01/29/21 07:05 White Blood Count 13.4 x10^3/uL (4.0-11.0) Red Blood Count 3.83 x10^6/uL (3.50-5.40) Hemoglobin 7.5 g/dL (12.0-15.5) Hematocrit 24.3 % (36.0-47.0) Mean Corpuscular Volume 64 fL (79-100) Mean Corpuscular Hemoglobin 20 pg (25-35) Mean Corpuscular Hemoglobin Concent 31 g/dL (31-37) Red Cell Distribution Width 19.5 % (11.5-14.5) Platelet Count 304 x10^3/uL (140-400) Neutrophils (%) (Auto) 75 % (31-73) Lymphocytes (%) (Auto) 13 % (24-48) Monocytes (%) (Auto) 9 % (0-9) Eosinophils (%) (Auto) 2 % (0-3) Basophils (%) (Auto) 1 % (0-3) Neutrophils # (Auto) 10.1 x10^3/uL (1.8-7.7) Lymphocytes # (Auto) 1.8 x10^3/uL (1.0-4.8) Monocytes # (Auto) 1.2 x10^3/uL (0.0-1.1) Eosinophils # (Auto) 0.3 x10^3/uL (0.0-0.7) Basophils # (Auto) 0.1 x10^3/uL (0.0-0.2) Micro Microbiology 01/24/21 Blood Culture - Preliminary, Resulted NO GROWTH AFTER 2 DAYS Objective Assessment IMPRESSION: 1. Left lower extremity cellulitis after having trauma at work with minor skin breakdowns 2. Leukocytosis. 3. Fever. Plan Plan of Care cont antibiotics cont leg elevation Victor Manuel and YOLETTE Mejia MD Jan 29, 2021 08:11
[2021-01-29 08:17] LABS: CALCIUM 7.7 mg/dL (8.5-10.1); CREATININE 0.8 mg/dL (0.6-1.0); GFR 97.1; POTASSIUM 3.2 mmol/L (3.5-5.1)
[2021-01-29] MEDS: LIDOCAINE (700MG/PATCH) PATCH. TD SCH (09:00)
[2021-01-29] MEDS ORDERED: MAGNESIUM SULFATE 2GM 50 ML IV ONE (09:00)
[2021-01-29] MEDS: LACTOBACILLUS RHAMNOSUS GG 1 CAPSULE. PO SCH ×2 (09:40→21:23)
[2021-01-29] MEDS: FAMOTIDINE 20 MG TABLET. PO SCH ×2 (09:40→21:23)
[2021-01-29] MEDS: LINEZOLID 600 MG TABLET PO SCH ×2 (09:40→21:23)
[2021-01-29] MEDS: POTASSIUM PHOS,M-BASIC-D-BASIC 15 MMOL in IV NORMAL SALINE 100ML 100 ML IV SCH ×2 (09:41→12:08)
[2021-01-29 11:00] VITALS: BP 106/70
--- NOTE | 2021-01-29 12:11 | PDOC ---
[facility] PROGRESS NOTE Date of Service DOS: DATE: 01/29/21 TIME: 12:08 Chief Complaint Chief Complaint A/P: Sepsis Acute left foot cellulitis secondary to trauma ELO due to vasomotor nephropathy Lactic acidemia Reactive leukocytosis Mild hyponatremia Mild hypokalemia Hypophosphatemia Microcytic anemia, likely due to OLIVE IV and p.o. electrolyte replacement Consider ferritin level Continue IV fluids Heparin for DVT prophylaxis Regular diet CODE STATUS FULL Discussed with RN and SW Disposition inpatient management as above DPOA: Carlotta Jack History of Present Illness History of Present Illness Ms Jack is a 40 yo female who presents with left foot and ankle pain. 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 Had a scrape on the back of her ankle. She put antibiotic ointment and had a bandage. Over 24 hours began having quickly advancing redness, swelling, and increasing pain. Overnight complained of subjective fever, chills, nausea, vomiting. She attributes her nausea and vomiting to a "bad" chicken salad from [employer]. 01/25: No acute events overnight. Patient seen and examined bedside. Continues to have pain in her left lower extremity. Progression of her redness has not worsened. Ortho evaluated and continues to recommend nonsurgical management. Continue with IV antibiotics. Patient's chart, labs, images were reviewed and discussed with RN 01/26: Vancomycin trough low. Still with significant pain and now blistering around her lateral left ankle. ID consulted by ortho. C/o headache and nausea today as well. 01/27: Afebrile overnight. No nausea vomiting or diarrhea though she does have some epigastric fullness. Headaches improved, but foot pain is minimally improved. Swelling is minimally improved the redness and erythema seem to be increased including her calf up to her popliteal fossa. There is good skin wrinkling and some blistering laterally on the malleolus. WBC still elevated. K 3 today. 01/28: Febrile 101.4 F overnight. Cramping of neck and back today, K 3.2 today. Pain in left leg still severe, a little more blistering near lateral malleolus. Afebrile for past 24 hours. Back and neck pain improved. Phosphorus low on IV K-Phos replacement states she is get some IV site pain is noted some negative interactions with nursing staff due to feeling reaction time for her pain is not appropriate. She does note that she is "needy" when it comes to pain. Attempted weightbearing on her left foot with severe pain in her MTP joint. Redness is improving pain is improving blistering has worsened and now is including posterior calf. Discussed with ID Vitals/I&O Vitals/I&O: Vital Signs Date Time Temp Pulse Resp B/P (MAP) Pulse Ox O2 Delivery O2 Flow Rate FiO2 01/29/21 11:00 97.6 92 17 106/70 (82) 99 97.6 01/29/21 07:37 Room Air 01/28/21 19:00 2.0 I & O 01/28/21 01/28/21 01/29/21 15:00 23:00 07:00 Intake Total 1237.51 ml 50 ml 200 ml Balance 1237.51 ml 50 ml 200 ml Physical Exam Physical Exam: GENERAL: Alert, oriented female, not in distress. VITAL SIGNS: Stable, HEENT: Both pupils are round and reacting. No conjunctival lesion. No lesion in the mouth. NECK: Supple. No JVP, no lymphadenopathy. LUNGS: Clear. HEART: S1, S2, regular. ABDOMEN: Soft, nontender. No organomegaly. EXTREMITIES: No edema, cyanosis. Left foot and ankle is swollen and red. She has had some what appears to be minor skin breakdown, which has actually closed now on the lateral part and the redness is on the foot, ankle and going into the lower part of the leg. There is no localized induration. There is no pus pointing. Large blister has developed NEUROLOGIC: Alert, awake, appropriate. No focal neurologic deficit. General: Alert, Oriented X3, Cooperative Heart: Regular rate Lungs: Clear Abdomen: Normal bowel sounds, No tenderness, Other (Extremities: Tight skin over the left ankle is warm, erythematous, and edematous when compared to the contralateral foot. Erythema streaking up the left gallardo and calf. She has severe ankle pain with passive range of motion. DP pulse intact. Brisk cap refill.) Labs Labs: Laboratory Tests Test 01/29/21 07:05 White Blood Count 13.4 x10^3/uL (4.0-11.0) Red Blood Count 3.83 x10^6/uL (3.50-5.40) Hemoglobin 7.5 g/dL (12.0-15.5) Hematocrit 24.3 % (36.0-47.0) Mean Corpuscular Volume 64 fL (79-100) Mean Corpuscular Hemoglobin 20 pg (25-35) Mean Corpuscular Hemoglobin Concent 31 g/dL (31-37) Red Cell Distribution Width 19.5 % (11.5-14.5) Platelet Count 304 x10^3/uL (140-400) Neutrophils (%) (Auto) 75 % (31-73) Lymphocytes (%) (Auto) 13 % (24-48) Monocytes (%) (Auto) 9 % (0-9) Eosinophils (%) (Auto) 2 % (0-3) Basophils (%) (Auto) 1 % (0-3) Neutrophils # (Auto) 10.1 x10^3/uL (1.8-7.7) Lymphocytes # (Auto) 1.8 x10^3/uL (1.0-4.8) Monocytes # (Auto) 1.2 x10^3/uL (0.0-1.1) Eosinophils # (Auto) 0.3 x10^3/uL (0.0-0.7) Basophils # (Auto) 0.1 x10^3/uL (0.0-0.2) Sodium Level 137 mmol/L (136-145) Potassium Level 3.2 mmol/L (3.5-5.1) Chloride Level 104 mmol/L (98-107) Carbon Dioxide Level 24 mmol/L (21-32) Anion Gap 9 (6-14) Blood Urea Nitrogen 3 mg/dL (7-20) Creatinine 0.8 mg/dL (0.6-1.0) Estimated GFR (Cockcroft-Gault) 97.1 Glucose Level 89 mg/dL (70-99) Calcium Level 7.7 mg/dL (8.5-10.1) Assessment and Plan Assessmemt and Plan Problems Medical Problems: (1) Cellulitis Status: Acute (2) Sepsis Status: Acute Comment Review of Relevant I have reviewed the following items carmel (where applicable) has been applied. Medications: Current Medications Medications (Trade) Dose Ordered Sig/Patricia Route PRN Reason Start Time Stop Time Status Last Admin Dose Admin Tramadol HCl (Ultram) 100 mg PRN Q4HRS PRN PO MILD TO MODERATE PAIN 01/28/21 18:15 01/29/21 11:10 Potassium Phosphate 15 mmol/ Sodium Chloride 105 ml @ 52.5 mls/hr Q2H IV 01/29/21 09:00 01/29/21 12:59 01/29/21 09:41 Justifications for Admission Other Justification Foot infection SUSIE DIEGO MD Jan 29, 2021 12:11
[2021-01-29 15:00] VITALS: BP 113/70
--- NOTE | 2021-01-29 15:37 | NUR ---
SS following up with discharge planning. SS reviewed pt chart and discussed with pt RN. Pt is currently on room air. COVID19 negative. Pt on IV Zosyn. Self pay. Med Assist following. Discharge plan is currently to home when medically ready for discharge. SS will continue to follow for discharge planning.
[2021-01-29] MEDS: diphenhydrAMINE HCL 25 MG CAPSULE PO PRN ×2 (16:27→21:29)
[2021-01-29 19:00] VITALS: BP 114/54
[2021-01-29] MEDS: ENOXAPARIN 40 MG/0.4 ML SYRINGE. SQ SCH (21:23)
[2021-01-29] MEDS: CYCLOBENZAPRINE 10 MG TABLET. PO PRN (21:26)
[2021-01-30] MEDS: PIPERACILLIN/TAZOBACTAM 3.375 GM in IV NORMAL SALINE 50ML 50 ML IV SCH ×4 (00:03→17:40)
[2021-01-30] MEDS: traMADol 50 MG TABLET PO PRN ×2 (06:20→22:23)
[2021-01-30 07:00] VITALS: BP 111/73
[2021-01-30 08:06] LABS: BASO # 0.1 x10^3/uL (0.0-0.2); BASO % 1 % (0-3); EOS # 0.3 x10^3/uL (0.0-0.7); EOS % 3 % (0-3); HEMOGLOBIN 7.8 g/dL (12.0-15.5); LYMPH # 2.2 x10^3/uL (1.0-4.8); LYMPH % 20 % (24-48); MEAN CORPUSCULAR HEMOGLOBIN 19 pg (25-35); MEAN CORPUSCULAR HGB CONC 30 g/dL (31-37); MEAN CORPUSCULAR VOLUME 63 fL (79-100); MONO # 0.8 x10^3/uL (0.0-1.1); MONO % 8 % (0-9); NEUT # 7.5 x10^3/uL (1.8-7.7); NEUT % 69 % (31-73); PLATELET COUNT 366 x10^3/uL (140-400); RED CELL DISTRIBUTION WIDTH 19.4 % (11.5-14.5); WHITE BLOOD COUNT 10.8 x10^3/uL (4.0-11.0)
[2021-01-30 08:35] LABS: CALCIUM 7.8 mg/dL (8.5-10.1); CREATININE 0.8 mg/dL (0.6-1.0); GFR 97.1; POTASSIUM 3.7 mmol/L (3.5-5.1)
--- NOTE | 2021-01-30 08:41 | PDOC ---
Infectious Disease Note Subjective Subjective Feeling much better now ROS ROS No nausea vomiting diarrhea Vital Sign Vital Signs Vital Signs Date Time Temp Pulse Resp B/P (MAP) Pulse Ox O2 Delivery O2 Flow Rate FiO2 01/30/21 03:00 92 Room Air 01/29/21 19:00 98.1 18 100 2.0 98.1 Physical Exam PHYSICAL EXAM GENERAL: Alert, oriented female, not in distress. VITAL SIGNS: Stable, HEENT: Both pupils are round and reacting. No conjunctival lesion. No lesion in the mouth. NECK: Supple. No JVP, no lymphadenopathy. LUNGS: Clear. HEART: S1, S2, regular. ABDOMEN: Soft, nontender. No organomegaly. EXTREMITIES: No edema, cyanosis. Left foot and ankle is swollen and red. She has had some what appears to be minor skin breakdown, which has actually closed now on the lateral part and the redness is on the foot, ankle and going into the lower part of the leg. There is no localized induration. There is no pus pointing. Large blister has developed NEUROLOGIC: Alert, awake, appropriate. No focal neurologic deficit. Labs Lab Laboratory Tests Test 01/30/21 07:25 White Blood Count 10.8 x10^3/uL (4.0-11.0) Red Blood Count 4.10 x10^6/uL (3.50-5.40) Hemoglobin 7.8 g/dL (12.0-15.5) Hematocrit 26.0 % (36.0-47.0) Mean Corpuscular Volume 63 fL (79-100) Mean Corpuscular Hemoglobin 19 pg (25-35) Mean Corpuscular Hemoglobin Concent 30 g/dL (31-37) Red Cell Distribution Width 19.4 % (11.5-14.5) Platelet Count 366 x10^3/uL (140-400) Neutrophils (%) (Auto) 69 % (31-73) Lymphocytes (%) (Auto) 20 % (24-48) Monocytes (%) (Auto) 8 % (0-9) Eosinophils (%) (Auto) 3 % (0-3) Basophils (%) (Auto) 1 % (0-3) Neutrophils # (Auto) 7.5 x10^3/uL (1.8-7.7) Lymphocytes # (Auto) 2.2 x10^3/uL (1.0-4.8) Monocytes # (Auto) 0.8 x10^3/uL (0.0-1.1) Eosinophils # (Auto) 0.3 x10^3/uL (0.0-0.7) Basophils # (Auto) 0.1 x10^3/uL (0.0-0.2) Micro Microbiology 01/24/21 Blood Culture - Preliminary, Resulted NO GROWTH AFTER 2 DAYS Objective Assessment IMPRESSION: 1. Left lower extremity cellulitis after having trauma at work with minor skin breakdowns 2. Leukocytosis. 3. Fever. Plan Plan of Care cont antibiotics cont leg elevation Zyvox and Zosyn d/w Dr Pool DAN,YOLETTE Bhatt MD Jan 30, 2021 08:41
[2021-01-30] MEDS: LIDOCAINE (700MG/PATCH) PATCH. TD SCH (09:00)
[2021-01-30] MEDS: LINEZOLID 600 MG TABLET PO SCH ×2 (09:20→21:04)
[2021-01-30] MEDS: FAMOTIDINE 20 MG TABLET. PO SCH ×2 (09:20→21:04)
[2021-01-30] MEDS: LACTOBACILLUS RHAMNOSUS GG 1 CAPSULE. PO SCH ×2 (09:20→21:04)
[2021-01-30] MEDS: CYCLOBENZAPRINE 10 MG TABLET. PO PRN ×2 (09:26→22:23)
[2021-01-30] MEDS: IV NORMAL SALINE 1000ML BAG 1,000 ML IV SCH (09:29)
[2021-01-30 11:00] VITALS: BP 109/65
--- NOTE | 2021-01-30 11:45 | NUR ---
SW following. Discussed with RN, pt from home with mother, room air, regular diet, COVID-19 negative. Pt feeling somewhat better. IV abx currently. RN advised no SW needs at this time. SW will continue to follow.
[2021-01-30] MEDS: KETOROLAC 30 MG/ML VIAL. IVP PRN (14:16)
--- NOTE | 2021-01-30 14:56 | PDOC ---
[facility] [facility] PROGRESS NOTE Date of Service DOS: DATE: 01/30/21 TIME: 14:53 Chief Complaint Chief Complaint A/P: Sepsis Acute left foot cellulitis secondary to trauma ELO due to vasomotor nephropathy Lactic acidemia Reactive leukocytosis Mild hyponatremia Mild hypokalemia Hypophosphatemia Microcytic anemia, likely due to OLIVE IV and p.o. electrolyte replacement Consider ferritin level Continue IV fluids Heparin for DVT prophylaxis Regular diet CODE STATUS FULL Discussed with RN and SW Disposition inpatient management as above DPOA: Carlotta Jack History of Present Illness History of Present Illness Ms Jack is a 40 yo female who presents with left foot and ankle pain. 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 Had a scrape on the back of her ankle. She put antibiotic ointment and had a bandage. Over 24 hours began having quickly advancing redness, swelling, and increasing pain. Overnight complained of subjective fever, chills, nausea, vomiting. She attributes her nausea and vomiting to a "bad" chicken salad from [employer]. 01/25: No acute events overnight. Patient seen and examined bedside. Continues to have pain in her left lower extremity. Progression of her redness has not worsened. Ortho evaluated and continues to recommend nonsurgical management. Continue with IV antibiotics. Patient's chart, labs, images were reviewed and discussed with RN 01/26: Vancomycin trough low. Still with significant pain and now blistering around her lateral left ankle. ID consulted by ortho. C/o headache and nausea today as well. 01/27: Afebrile overnight. No nausea vomiting or diarrhea though she does have some epigastric fullness. Headaches improved, but foot pain is minimally improved. Swelling is minimally improved the redness and erythema seem to be increased including her calf up to her popliteal fossa. There is good skin wrinkling and some blistering laterally on the malleolus. WBC still elevated. K 3 today. 01/28: Febrile 101.4 F overnight. Cramping of neck and back today, K 3.2 today. Pain in left leg still severe, a little more blistering near lateral malleolus. 01/29: Afebrile for past 24 hours. Back and neck pain improved. Phosphorus low on IV K-Phos replacement states she is get some IV site pain is noted some negative interactions with nursing staff due to feeling reaction time for her pain is not appropriate. She does note that she is "needy" when it comes to pain. Attempted weightbearing on her left foot with severe pain in her MTP joint. Redness is improving pain is improving blistering has worsened and now is including posterior calf. Discussed with ID 01/30: Afebrile, WBC 10.8. Concerned about the size of the posterior to left dorsal foot. Pain relatively controlled. Still feeling apprehensive to attempt ambulation. Continue IV antibiotics, Zosyn and Zyvox. Reinforced elevation of left leg above the level of the heart. Vitals/I&O Vitals/I&O: Vital Signs Date Time Temp Pulse Resp B/P (MAP) Pulse Ox O2 Delivery O2 Flow Rate FiO2 01/30/21 11:00 98.2 73 17 109/65 (80) 97 Room Air 98.2 01/29/21 19:00 2.0 I & O 01/29/21 01/29/21 01/30/21 15:00 23:00 07:00 Intake Total 205 ml 1133 ml 100 ml Balance 205 ml 1133 ml 100 ml Physical Exam Physical Exam: GENERAL: Alert, oriented female, not in distress. VITAL SIGNS: Stable, HEENT: Both pupils are round and reacting. No conjunctival lesion. No lesion in the mouth. NECK: Supple. No JVP, no lymphadenopathy. LUNGS: Clear. HEART: S1, S2, regular. ABDOMEN: Soft, nontender. No organomegaly. EXTREMITIES: No edema, cyanosis. Left foot and ankle is swollen and red. She has had some what appears to be minor skin breakdown, which has actually closed now on the lateral part and the redness is on the foot, ankle and going into the lower part of the leg. There is no localized induration. There is no pus pointing. Large blister has developed NEUROLOGIC: Alert, awake, appropriate. No focal neurologic deficit. General: Alert, Oriented X3, Cooperative Heart: Regular rate Lungs: Clear Abdomen: Normal bowel sounds, No tenderness, Other (Extremities: Tight skin over the left ankle is warm, erythematous, and edematous when compared to the contralateral foot. Erythema streaking up the left gallardo and calf. She has severe ankle pain with passive range of motion. DP pulse intact. Brisk cap refill.) Labs Labs: Laboratory Tests Test 01/30/21 07:25 White Blood Count 10.8 x10^3/uL (4.0-11.0) Red Blood Count 4.10 x10^6/uL (3.50-5.40) Hemoglobin 7.8 g/dL (12.0-15.5) Hematocrit 26.0 % (36.0-47.0) Mean Corpuscular Volume 63 fL (79-100) Mean Corpuscular Hemoglobin 19 pg (25-35) Mean Corpuscular Hemoglobin Concent 30 g/dL (31-37) Red Cell Distribution Width 19.4 % (11.5-14.5) Platelet Count 366 x10^3/uL (140-400) Neutrophils (%) (Auto) 69 % (31-73) Lymphocytes (%) (Auto) 20 % (24-48) Monocytes (%) (Auto) 8 % (0-9) Eosinophils (%) (Auto) 3 % (0-3) Basophils (%) (Auto) 1 % (0-3) Neutrophils # (Auto) 7.5 x10^3/uL (1.8-7.7) Lymphocytes # (Auto) 2.2 x10^3/uL (1.0-4.8) Monocytes # (Auto) 0.8 x10^3/uL (0.0-1.1) Eosinophils # (Auto) 0.3 x10^3/uL (0.0-0.7) Basophils # (Auto) 0.1 x10^3/uL (0.0-0.2) Sodium Level 139 mmol/L (136-145) Potassium Level 3.7 mmol/L (3.5-5.1) Chloride Level 103 mmol/L (98-107) Carbon Dioxide Level 26 mmol/L (21-32) Anion Gap 10 (6-14) Blood Urea Nitrogen 3 mg/dL (7-20) Creatinine 0.8 mg/dL (0.6-1.0) Estimated GFR (Cockcroft-Gault) 97.1 Glucose Level 76 mg/dL (70-99) Calcium Level 7.8 mg/dL (8.5-10.1) Assessment and Plan Assessmemt and Plan Problems Medical Problems: (1) Cellulitis Status: Acute (2) Sepsis Status: Acute Comment Review of Relevant I have reviewed the following items carmel (where applicable) has been applied. Justifications for Admission Other Justification Foot infection PEDRO DEL CID MD Jan 30, 2021 14:55
[2021-01-30 15:00] VITALS: BP 101/61
[2021-01-30 19:00] VITALS: BP 110/65
[2021-01-30] MEDS: ENOXAPARIN 40 MG/0.4 ML SYRINGE. SQ SCH (21:04)
--- NOTE | 2021-01-30 21:48 | NUR ---
Patient's telemetry off, as she is taking a shower.
[2021-01-30 23:00] VITALS: BP 111/74
--- NOTE | 2021-01-31 00:30 | NUR ---
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 monitoring.
[2021-01-31] MEDS: PIPERACILLIN/TAZOBACTAM 3.375 GM in IV NORMAL SALINE 50ML 50 ML IV SCH ×4 (01:20→17:14)
[2021-01-31] MEDS: KETOROLAC 30 MG/ML VIAL. IVP PRN (01:26)
[2021-01-31] MEDS: diphenhydrAMINE HCL 25 MG CAPSULE PO PRN ×2 (01:37→17:13)
[2021-01-31 03:00] VITALS: BP 92/46
[2021-01-31] MEDS: IV NORMAL SALINE 1000ML BAG 1,000 ML IV SCH ×4 (04:46→21:02)
[2021-01-31 07:00] VITALS: BP_SYST 109; BP_SYST 111; BP_DIAS 58; BP_DIAS 61
[2021-01-31] MEDS: CYCLOBENZAPRINE 10 MG TABLET. PO PRN (09:13)
[2021-01-31] MEDS: LACTOBACILLUS RHAMNOSUS GG 1 CAPSULE. PO SCH ×2 (09:14→20:46)
[2021-01-31] MEDS: LINEZOLID 600 MG TABLET PO SCH ×2 (09:14→20:46)
[2021-01-31] MEDS: traMADol 50 MG TABLET PO PRN ×2 (09:14→20:46)
[2021-01-31] MEDS: FAMOTIDINE 20 MG TABLET. PO SCH ×2 (09:14→20:46)
[2021-01-31] MEDS: LIDOCAINE (700MG/PATCH) PATCH. TD SCH (09:15)
--- NOTE | 2021-01-31 10:56 | PDOC ---
[facility] PROGRESS NOTE Date of Service DOS: DATE: 01/31/21 TIME: 10:54 Chief Complaint Chief Complaint A/P: Sepsis Acute left foot cellulitis secondary to trauma ELO due to vasomotor nephropathy Lactic acidemia Reactive leukocytosis Mild hyponatremia Mild hypokalemia Hypophosphatemia Microcytic anemia, likely due to OLIVE IV and p.o. electrolyte replacement Consider ferritin level Continue IV fluids Heparin for DVT prophylaxis Regular diet CODE STATUS FULL Discussed with RN and SW Disposition inpatient management as above DPOA: Carlotta Jack History of Present Illness History of Present Illness Ms Jack is a 40 yo female who presents with left foot and ankle pain. 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 Had a scrape on the back of her ankle. She put antibiotic ointment and had a bandage. Over 24 hours began having quickly advancing redness, swelling, and increasing pain. Overnight complained of subjective fever, chills, nausea, vomiting. She attributes her nausea and vomiting to a "bad" chicken salad from [employer]. 01/25: No acute events overnight. Patient seen and examined bedside. Continues to have pain in her left lower extremity. Progression of her redness has not worsened. Ortho evaluated and continues to recommend nonsurgical management. Continue with IV antibiotics. Patient's chart, labs, images were reviewed and discussed with RN 01/26: Vancomycin trough low. Still with significant pain and now blistering around her lateral left ankle. ID consulted by ortho. C/o headache and nausea today as well. 01/27: Afebrile overnight. No nausea vomiting or diarrhea though she does have some epigastric fullness. Headaches improved, but foot pain is minimally improved. Swelling is minimally improved the redness and erythema seem to be increased including her calf up to her popliteal fossa. There is good skin wrinkling and some blistering laterally on the malleolus. WBC still elevated. K 3 today. 01/28: Febrile 101.4 F overnight. Cramping of neck and back today, K 3.2 today. Pain in left leg still severe, a little more blistering near lateral malleolus. 01/29: Afebrile for past 24 hours. Back and neck pain improved. Phosphorus low on IV K-Phos replacement states she is get some IV site pain is noted some negative interactions with nursing staff due to feeling reaction time for her pain is not appropriate. She does note that she is "needy" when it comes to pain. Attempted weightbearing on her left foot with severe pain in her MTP joint. Redness is improving pain is improving blistering has worsened and now is including posterior calf. Discussed with ID 01/30: Afebrile, WBC 10.8. Concerned about the size of the posterior to left dorsal foot. Pain relatively controlled. Still feeling apprehensive to attempt ambulation. Continue IV antibiotics, Zosyn and Zyvox. Reinforced elevation of left leg above the level of the heart. 01/31: Afebrile. Feels there is some improvement in the proximal portion of her left lower extremity cellulitis, however concerned that they appear to be peripheral skin changes around the blister on her dorsal foot. Continue IV antibiotics. Recommended adding additional pillow underneath her left foot to maintain legs in optimal position to drain fluid. "Toes above nose ". Vitals/I&O Vitals/I&O: Vital Signs Date Time Temp Pulse Resp B/P (MAP) Pulse Ox O2 Delivery O2 Flow Rate FiO2 01/31/21 07:00 97.5 104 20 111/58 (75) 92 Room Air 97.5 I & O 01/30/21 01/30/21 01/31/21 15:00 23:00 07:00 Intake Total 400 ml 300 ml 1370 ml Balance 400 ml 300 ml 1370 ml Physical Exam Physical Exam: GENERAL: Alert, oriented female, not in distress. VITAL SIGNS: Stable, HEENT: Both pupils are round and reacting. No conjunctival lesion. No lesion in the mouth. NECK: Supple. No JVP, no lymphadenopathy. LUNGS: Clear. HEART: S1, S2, regular. ABDOMEN: Soft, nontender. No organomegaly. EXTREMITIES: No edema, cyanosis. Left foot and ankle is swollen and red. She has had some what appears to be minor skin breakdown, which has actually closed now on the lateral part and the redness is on the foot, ankle and going into the lower part of the leg. There is no localized induration. There is no pus pointing. Large blister has developed NEUROLOGIC: Alert, awake, appropriate. No focal neurologic deficit. General: Alert, Oriented X3, Cooperative Heart: Regular rate Lungs: Clear Abdomen: Normal bowel sounds, No tenderness, Other (Extremities: Tight skin over the left ankle is warm, erythematous, and edematous when compared to the contralateral foot. Erythema streaking up the left gallardo and calf. She has severe ankle pain with passive range of motion. DP pulse intact. Brisk cap refill.) Assessment and Plan Assessmemt and Plan Problems Medical Problems: (1) Cellulitis Status: Acute (2) Sepsis Status: Acute Comment Review of Relevant I have reviewed the following items carmel (where applicable) has been applied. Justifications for Admission Other Justification Foot infection PEDRO DEL CID MD Jan 31, 2021 10:56
[2021-01-31 11:13] VITALS: BP 116/83
[2021-01-31 15:08] VITALS: BP 107/75
[2021-01-31 19:00] VITALS: BP 125/53
[2021-01-31] MEDS: ENOXAPARIN 40 MG/0.4 ML SYRINGE. SQ SCH (20:54)
[2021-01-31 23:00] VITALS: BP 119/72
[2021-02-01] MEDS: PIPERACILLIN/TAZOBACTAM 3.375 GM in IV NORMAL SALINE 50ML 50 ML IV SCH ×5 (00:40→23:54)
[2021-02-01] MEDS: CYCLOBENZAPRINE 10 MG TABLET. PO PRN (00:54)
[2021-02-01 03:00] VITALS: BP 112/73
[2021-02-01] MEDS: IV NORMAL SALINE 1000ML BAG 1,000 ML IV SCH ×3 (05:45→23:54)
[2021-02-01 07:00] VITALS: BP 120/69
[2021-02-01] MEDS: traMADol 50 MG TABLET PO PRN ×2 (07:27→20:43)
[2021-02-01] MEDS: LINEZOLID 600 MG TABLET PO SCH ×2 (09:45→20:42)
[2021-02-01] MEDS: LACTOBACILLUS RHAMNOSUS GG 1 CAPSULE. PO SCH ×2 (09:45→20:42)
[2021-02-01] MEDS: FAMOTIDINE 20 MG TABLET. PO SCH ×2 (09:45→20:42)
--- NOTE | 2021-02-01 09:51 | PDOC ---
[facility] PROGRESS NOTE Date of Service DOS: DATE: 02/01/21 TIME: 09:49 Chief Complaint Chief Complaint A/P: Sepsis Acute left foot cellulitis secondary to trauma ELO due to vasomotor nephropathy Lactic acidemia Reactive leukocytosis Mild hyponatremia Mild hypokalemia Hypophosphatemia Microcytic anemia, likely due to OLIVE IV and p.o. electrolyte replacement Consider ferritin level Continue IV fluids Heparin for DVT prophylaxis Regular diet CODE STATUS FULL Discussed with RN and SW Disposition inpatient management as above DPOA: Carlotta Jack History of Present Illness History of Present Illness Ms Jack is a 40 yo female who presents with left foot and ankle pain. 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 Had a scrape on the back of her ankle. She put antibiotic ointment and had a bandage. Over 24 hours began having quickly advancing redness, swelling, and increasing pain. Overnight complained of subjective fever, chills, nausea, vomiting. She attributes her nausea and vomiting to a "bad" chicken salad from [employer]. 01/25: No acute events overnight. Patient seen and examined bedside. Continues to have pain in her left lower extremity. Progression of her redness has not worsened. Ortho evaluated and continues to recommend nonsurgical management. Continue with IV antibiotics. Patient's chart, labs, images were reviewed and discussed with RN 01/26: Vancomycin trough low. Still with significant pain and now blistering around her lateral left ankle. ID consulted by ortho. C/o headache and nausea today as well. 01/27: Afebrile overnight. No nausea vomiting or diarrhea though she does have some epigastric fullness. Headaches improved, but foot pain is minimally improved. Swelling is minimally improved the redness and erythema seem to be increased including her calf up to her popliteal fossa. There is good skin wrinkling and some blistering laterally on the malleolus. WBC still elevated. K 3 today. 01/28: Febrile 101.4 F overnight. Cramping of neck and back today, K 3.2 today. Pain in left leg still severe, a little more blistering near lateral malleolus. 01/29: Afebrile for past 24 hours. Back and neck pain improved. Phosphorus low on IV K-Phos replacement states she is get some IV site pain is noted some negative interactions with nursing staff due to feeling reaction time for her pain is not appropriate. She does note that she is "needy" when it comes to pain. Attempted weightbearing on her left foot with severe pain in her MTP joint. Redness is improving pain is improving blistering has worsened and now is including posterior calf. Discussed with ID 01/30: Afebrile, WBC 10.8. Concerned about the size of the posterior to left dorsal foot. Pain relatively controlled. Still feeling apprehensive to attempt ambulation. Continue IV antibiotics, Zosyn and Zyvox. Reinforced elevation of left leg above the level of the heart. 01/31: Afebrile. Feels there is some improvement in the proximal portion of her left lower extremity cellulitis, however concerned that they appear to be peripheral skin changes around the blister on her dorsal foot. Continue IV antibiotics. Recommended adding additional pillow underneath her left foot to maintain legs in optimal position to drain fluid. "Toes above nose ". 02/01: Afebrile. Left foot blister popped overnight, with clear yellow drainage. Unfortunately no cultures were obtained. We will continue to treat empirically with Zosyn IV. Leg elevation. When able to ambulate with crutches she can discharge on p.o. Augmentin to complete outpatient antibiotic regimen. Vitals/I&O Vitals/I&O: Vital Signs Date Time Temp Pulse Resp B/P (MAP) Pulse Ox O2 Delivery O2 Flow Rate FiO2 02/01/21 07:00 98.3 66 17 120/69 (86) 97 Room Air 98.3 I & O 01/31/21 01/31/21 02/01/21 15:00 23:00 07:00 Intake Total 1100 ml 600 ml Output Total 400 ml 1000 ml Balance 700 ml -400 ml Physical Exam Physical Exam: GENERAL: Alert, oriented female, not in distress. VITAL SIGNS: Stable, HEENT: Both pupils are round and reacting. No conjunctival lesion. No lesion in the mouth. NECK: Supple. No JVP, no lymphadenopathy. LUNGS: Clear. HEART: S1, S2, regular. ABDOMEN: Soft, nontender. No organomegaly. EXTREMITIES: No edema, cyanosis. Left foot and ankle is swollen and red. She has had some what appears to be minor skin breakdown, which has actually closed now on the lateral part and the redness is on the foot, ankle and going into the lower part of the leg. There is no localized induration. There is no pus pointing. Large blister has developed NEUROLOGIC: Alert, awake, appropriate. No focal neurologic deficit. General: Alert, Oriented X3, Cooperative Heart: Regular rate Lungs: Clear Abdomen: Normal bowel sounds, No tenderness, Other (Extremities: Tight skin over the left ankle is warm, erythematous, and edematous when compared to the contralateral foot. Erythema streaking up the left gallardo and calf. She has severe ankle pain with passive range of motion. DP pulse intact. Brisk cap refill.) Assessment and Plan Assessmemt and Plan Problems Medical Problems: (1) Cellulitis Status: Acute (2) Sepsis Status: Acute Comment Review of Relevant I have reviewed the following items carmel (where applicable) has been applied. Justifications for Admission Other Justification Foot infection PEDRO DEL CID MD Feb 01, 2021 09:50
[2021-02-01 10:19] LABS: CREATININE 0.9 mg/dL (0.6-1.0); GFR 84.8
[2021-02-01 10:29] LABS: BASO % 0 % (0-3); EOS # 0.2 x10^3/uL (0.0-0.7); EOS % 3 % (0-3); HEMATOCRIT 25.3 % (36.0-47.0); HEMOGLOBIN 7.5 g/dL (12.0-15.5); LYMPH # 1.6 x10^3/uL (1.0-4.8); LYMPH % 22 % (24-48); MEAN CORPUSCULAR HEMOGLOBIN 19 pg (25-35); MEAN CORPUSCULAR HGB CONC 30 g/dL (31-37); MEAN CORPUSCULAR VOLUME 64 fL (79-100); MONO # 0.4 x10^3/uL (0.0-1.1); MONO % 5 % (0-9); NEUT # 4.9 x10^3/uL (1.8-7.7); NEUT % 70 % (31-73); PLATELET COUNT 347 x10^3/uL (140-400); RED BLOOD COUNT 3.96 x10^6/uL (3.50-5.40); RED CELL DISTRIBUTION WIDTH 19.4 % (11.5-14.5)
[2021-02-01 11:00] VITALS: BP 109/53
[2021-02-01] MEDS: LIDOCAINE (700MG/PATCH) PATCH. TD SCH (12:13)
[2021-02-01 15:00] VITALS: BP 118/71
[2021-02-01 19:00] VITALS: BP 112/64
[2021-02-01] MEDS: ENOXAPARIN 40 MG/0.4 ML SYRINGE. SQ SCH (20:42)
[2021-02-01] MEDS: diphenhydrAMINE HCL 25 MG CAPSULE PO PRN (22:10)
[2021-02-01] MEDS: KETOROLAC 30 MG/ML VIAL. IVP PRN (22:36)
[2021-02-01 23:00] VITALS: BP 127/82
[2021-02-02 03:00] VITALS: BP 111/69
[2021-02-02] MEDS: PIPERACILLIN/TAZOBACTAM 3.375 GM in IV NORMAL SALINE 50ML 50 ML IV SCH ×3 (06:05→17:37)
[2021-02-02] MEDS: diphenhydrAMINE HCL 25 MG CAPSULE PO PRN ×2 (06:06→20:49)
[2021-02-02 07:00] VITALS: BP 119/71
[2021-02-02] MEDS: LACTOBACILLUS RHAMNOSUS GG 1 CAPSULE. PO SCH ×2 (08:55→20:30)
[2021-02-02] MEDS: LINEZOLID 600 MG TABLET PO SCH ×2 (08:56→20:31)
[2021-02-02] MEDS: FAMOTIDINE 20 MG TABLET. PO SCH ×2 (08:58→20:30)
[2021-02-02 11:00] VITALS: BP 121/73
--- NOTE | 2021-02-02 11:05 | NUR ---
SW following. Discussed with RN, pt from home with mother, room air, regular diet. PT/OT ordered to determine if pt can manage on crutches. Per Dr. Hood's note, pt can discharge home on PO abx and with crutches if managing. SW will continue to follow.
[2021-02-02] MEDS: IV NORMAL SALINE 1000ML BAG 1,000 ML IV SCH ×2 (12:00→20:45)
--- NOTE | 2021-02-02 12:42 | PDOC ---
[facility] PROGRESS NOTE Date of Service DOS: DATE: 02/02/21 TIME: 12:40 Chief Complaint Chief Complaint Sepsis Acute left foot cellulitis secondary to trauma ELO due to vasomotor nephropathy Lactic acidemia Reactive leukocytosis Mild hyponatremia Mild hypokalemia Hypophosphatemia Microcytic anemia, likely due to OLIVE History of Present Illness History of Present Illness 02/02/2021 Patient seen and examined, chart reviewed Discussed with RN Ms Jack is a 40 yo female who presents with left foot and ankle pain. 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 Had a scrape on the back of her ankle. She put antibiotic ointment and had a bandage. Over 24 hours began having quickly advancing redness, swelling, and increasing pain. Overnight complained of subjective fever, chills, nausea, vomiting. She attributes her nausea and vomiting to a "bad" chicken salad from [employer]. 01/25: No acute events overnight. Patient seen and examined bedside. Continues to have pain in her left lower extremity. Progression of her redness has not worsened. Ortho evaluated and continues to recommend nonsurgical management. Continue with IV antibiotics. Patient's chart, labs, images were reviewed and discussed with RN 01/26: Vancomycin trough low. Still with significant pain and now blistering around her lateral left ankle. ID consulted by ortho. C/o headache and nausea today as well. 01/27: Afebrile overnight. No nausea vomiting or diarrhea though she does have some epigastric fullness. Headaches improved, but foot pain is minimally improved. Swelling is minimally improved the redness and erythema seem to be increased including her calf up to her popliteal fossa. There is good skin wrinkling and some blistering laterally on the malleolus. WBC still elevated. K 3 today. 01/28: Febrile 101.4 F overnight. Cramping of neck and back today, K 3.2 today. Pain in left leg still severe, a little more blistering near lateral malleolus. 01/29: Afebrile for past 24 hours. Back and neck pain improved. Phosphorus low on IV K-Phos replacement states she is get some IV site pain is noted some negative interactions with nursing staff due to feeling reaction time for her pain is not appropriate. She does note that she is "needy" when it comes to pain. Attempted weightbearing on her left foot with severe pain in her MTP joint. Redness is improving pain is improving blistering has worsened and now is including posterior calf. Discussed with ID 01/30: Afebrile, WBC 10.8. Concerned about the size of the posterior to left dorsal foot. Pain relatively controlled. Still feeling apprehensive to attempt ambulation. Continue IV antibiotics, Zosyn and Zyvox. Reinforced elevation of left leg above the level of the heart. 01/31: Afebrile. Feels there is some improvement in the proximal portion of her left lower extremity cellulitis, however concerned that they appear to be peripheral skin changes around the blister on her dorsal foot. Continue IV antibiotics. Recommended adding additional pillow underneath her left foot to maintain legs in optimal position to drain fluid. "Toes above nose ". 02/01: Afebrile. Left foot blister popped overnight, with clear yellow drainage. Unfortunately no cultures were obtained. We will continue to treat empirically with Zosyn IV. Leg elevation. When able to ambulate with crutches she can discharge on p.o. Augmentin to complete outpatient antibiotic regimen. Vitals/I&O Vitals/I&O: Vital Signs Date Time Temp Pulse Resp B/P (MAP) Pulse Ox O2 Delivery O2 Flow Rate FiO2 02/02/21 07:00 98.3 78 20 119/71 (87) 96 Room Air 98.3 I & O 02/01/21 02/01/21 02/02/21 15:00 23:00 07:00 Intake Total 400 ml 500 ml 500 ml Output Total 700 ml Balance 400 ml 500 ml -200 ml Physical Exam Physical Exam: GENERAL: Alert, oriented female, not in distress. VITAL SIGNS: Stable, HEENT: Both pupils are round and reacting. No conjunctival lesion. No lesion in the mouth. NECK: Supple. No JVP, no lymphadenopathy. LUNGS: Clear. HEART: S1, S2, regular. ABDOMEN: Soft, nontender. No organomegaly. EXTREMITIES: No edema, cyanosis. Left foot and ankle is swollen and red. She has had some what appears to be minor skin breakdown, which has actually closed now on the lateral part and the redness is on the foot, ankle and going into the lower part of the leg. There is no localized induration. There is no pus pointing. Large blister has developed NEUROLOGIC: Alert, awake, appropriate. No focal neurologic deficit. General: Alert, Oriented X3, Cooperative Heart: Regular rate Lungs: Clear Abdomen: Normal bowel sounds, No tenderness, Other (Extremities: Tight skin over the left ankle is warm, erythematous, and edematous when compared to the contralateral foot. Erythema streaking up the left gallardo and calf. She has severe ankle pain with passive range of motion. DP pulse intact. Brisk cap refill.) Assessment and Plan Assessmemt and Plan Problems Medical Problems: (1) Cellulitis Status: Acute (2) Sepsis Status: Acute Sepsis Acute left foot cellulitis secondary to trauma ELO due to vasomotor nephropathy Lactic acidemia Reactive leukocytosis Mild hyponatremia Mild hypokalemia Hypophosphatemia Microcytic anemia, likely due to OLIVE Plan IV antibiotics Consult wound care team IV and p.o. electrolyte replacement Continue IV fluids Heparin for DVT prophylaxis Regular diet As needed pain meds Home meds CODE STATUS FULL Discussed with RN and SW Disposition inpatient management as above DPOA: Carlotta Jack Comment Review of Relevant I have reviewed the following items carmel (where applicable) has been applied. Justifications for Admission Other Justification Foot infection REAL MCFADDEN III DO Feb 02, 2021 12:42
[2021-02-02] MEDS: CYCLOBENZAPRINE 10 MG TABLET. PO PRN ×2 (13:02→20:45)
[2021-02-02] MEDS: LIDOCAINE (700MG/PATCH) PATCH. TD SCH (13:02)
[2021-02-02 15:00] VITALS: BP 127/70
[2021-02-02] MEDS ORDERED: PHENOL ORAL SPRAY 177ML BOTTLE. PO PRN (16:00)
[2021-02-02] MEDS ORDERED: SALIVA STIMULANT AGENT 44ML SPRAY BOTTLE. PO PRN (16:00)
--- NOTE | 2021-02-02 16:00 | NUR ---
Wound/Ostomy Care Wound Type/Assessment: WC consult for left ankle abscess. Cleansed, assessed, and redressed wound. Treatment Recommendations/Plan: Cleanse area, cover xeroform, abd and kerlix. Change every 2-3 days. Education provided: WC POC and PU prevention Offloading surface/device: na Recommended Referrals/Tests: Teagan Ray to see for possible debridement Discharge Recommendations for dressings: see above
--- NOTE | 2021-02-02 16:37 | NUR ---
patient very upset that physician would not order topical antibiotic for wound on ankle. pt states "Now i'll have a scar when it heals and it will be ugly." reminded patient that she is getting IV and PO antibiotics that are more effective than topical. pt then informed staff she will just have her mom bring her some antibiotic cream. RN told her that meds from outside the hospital are not allowed unless ordered and approved by the physician. RN told patient she would get her some more vaseline gauze for other areas of concern on the patient's leg.
[2021-02-02] MEDS: NYSTATIN 100,000 UNITS/ML 5 ML ORAL.SUSP. SWSW SCH ×2 (17:36→20:30)
[2021-02-02 19:00] VITALS: BP 122/77
[2021-02-02] MEDS: ENOXAPARIN 40 MG/0.4 ML SYRINGE. SQ SCH (20:31)
[2021-02-02] MEDS: traMADol 50 MG TABLET PO PRN (20:51)
[2021-02-03] MEDS: PIPERACILLIN/TAZOBACTAM 3.375 GM in IV NORMAL SALINE 50ML 50 ML IV SCH ×4 (00:21→17:46)
[2021-02-03] MEDS: ACETAMINOPHEN 325 MG TABLET. PO PRN ×2 (00:35→23:04)
[2021-02-03 07:00] VITALS: BP 92/35
[2021-02-03 07:38] LABS: BASO % 1 % (0-3); EOS # 0.1 x10^3/uL (0.0-0.7); EOS % 3 % (0-3); HEMATOCRIT 26.1 % (36.0-47.0); HEMOGLOBIN 7.9 g/dL (12.0-15.5); LYMPH # 1.4 x10^3/uL (1.0-4.8); LYMPH % 27 % (24-48); MEAN CORPUSCULAR HEMOGLOBIN 19 pg (25-35); MEAN CORPUSCULAR HGB CONC 30 g/dL (31-37); MEAN CORPUSCULAR VOLUME 64 fL (79-100); MONO # 0.4 x10^3/uL (0.0-1.1); MONO % 8 % (0-9); NEUT # 3.3 x10^3/uL (1.8-7.7); NEUT % 62 % (31-73); PLATELET COUNT 398 x10^3/uL (140-400); RED BLOOD COUNT 4.08 x10^6/uL (3.50-5.40); RED CELL DISTRIBUTION WIDTH 19.1 % (11.5-14.5); WHITE BLOOD COUNT 5.3 x10^3/uL (4.0-11.0)
[2021-02-03 08:11] LABS: CALCIUM 7.9 mg/dL (8.5-10.1); CREATININE 0.9 mg/dL (0.6-1.0); GFR 84.8
[2021-02-03] MEDS: LINEZOLID 600 MG TABLET PO SCH ×2 (08:38→23:05)
[2021-02-03] MEDS: FAMOTIDINE 20 MG TABLET. PO SCH ×2 (08:38→23:05)
[2021-02-03] MEDS: LACTOBACILLUS RHAMNOSUS GG 1 CAPSULE. PO SCH ×2 (08:38→23:05)
[2021-02-03] MEDS: NYSTATIN 100,000 UNITS/ML 5 ML ORAL.SUSP. SWSW SCH ×4 (08:38→23:06)
[2021-02-03] MEDS: LIDOCAINE (700MG/PATCH) PATCH. TD SCH (09:00)
[2021-02-03] MEDS: IV NORMAL SALINE 1000ML BAG 1,000 ML IV SCH ×2 (10:06→23:06)
[2021-02-03 11:00] VITALS: BP 132/72
--- NOTE | 2021-02-03 12:56 | PDOC ---
[facility] PROGRESS NOTE Date of Service DOS: DATE: 02/03/21 TIME: 12:47 Chief Complaint Chief Complaint Sepsis Acute left foot cellulitis secondary to trauma ELO due to vasomotor nephropathy Lactic acidemia Reactive leukocytosis Mild hyponatremia Mild hypokalemia Hypophosphatemia Microcytic anemia, likely due to OLIVE History of Present Illness History of Present Illness 02/03/2021 Pt seen and examined at bedside Charts reviewed No acute overnight events Patient was upset over R. Foot swelling and wound Pt complained of small raised lesions on tongue and oral mucosa Discussed case with SORAIDA and RN 02/02/2021 Patient seen and examined, chart reviewed Discussed with RN Ms Jack is a 40 yo female who presents with left foot and ankle pain. 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 Had a scrape on the back of her ankle. She put antibiotic ointment and had a bandage. Over 24 hours began having quickly advancing redness, swelling, and increasing pain. Overnight complained of subjective fever, chills, nausea, vomiting. She attributes her nausea and vomiting to a "bad" chicken salad from [employer]. 01/25: No acute events overnight. Patient seen and examined bedside. Continues to have pain in her left lower extremity. Progression of her redness has not worsened. Ortho evaluated and continues to recommend nonsurgical management. Continue with IV antibiotics. Patient's chart, labs, images were reviewed and discussed with RN 01/26: Vancomycin trough low. Still with significant pain and now blistering around her lateral left ankle. ID consulted by ortho. C/o headache and nausea today as well. 01/27: Afebrile overnight. No nausea vomiting or diarrhea though she does have some epigastric fullness. Headaches improved, but foot pain is minimally improved. Swelling is minimally improved the redness and erythema seem to be increased including her calf up to her popliteal fossa. There is good skin wrinkling and some blistering laterally on the malleolus. WBC still elevated. K 3 today. 01/28: Febrile 101.4 F overnight. Cramping of neck and back today, K 3.2 today. Pain in left leg still severe, a little more blistering near lateral malleolus. 01/29: Afebrile for past 24 hours. Back and neck pain improved. Phosphorus low on IV K-Phos replacement states she is get some IV site pain is noted some negative interactions with nursing staff due to feeling reaction time for her pain is not appropriate. She does note that she is "needy" when it comes to pain. Attempted weightbearing on her left foot with severe pain in her MTP joint. Redness is improving pain is improving blistering has worsened and now is including posterior calf. Discussed with ID 01/30: Afebrile, WBC 10.8. Concerned about the size of the posterior to left dorsal foot. Pain relatively controlled. Still feeling apprehensive to attempt ambulation. Continue IV antibiotics, Zosyn and Zyvox. Reinforced elevation of left leg above the level of the heart. 01/31: Afebrile. Feels there is some improvement in the proximal portion of her left lower extremity cellulitis, however concerned that they appear to be peripheral skin changes around the blister on her dorsal foot. Continue IV antibiotics. Recommended adding additional pillow underneath her left foot to maintain legs in optimal position to drain fluid. "Toes above nose ". 02/01: Afebrile. Left foot blister popped overnight, with clear yellow drainage. Unfortunately no cultures were obtained. We will continue to treat empirically with Zosyn IV. Leg elevation. When able to ambulate with crutches she can discharge on p.o. Augmentin to complete outpatient antibiotic regimen. Vitals/I&O Vitals/I&O: Vital Signs Date Time Temp Pulse Resp B/P (MAP) Pulse Ox O2 Delivery O2 Flow Rate FiO2 02/03/21 11:00 98.2 72 18 132/72 (92) 99 Room Air 98.2 02/02/21 19:00 2.0 I & O 02/02/21 02/02/21 02/03/21 14:59 22:59 06:59 Intake Total 1000 ml 100 ml Output Total 300 ml 1 ml Balance -300 ml 999 ml 100 ml Physical Exam Physical Exam: GENERAL: Alert, oriented female, not in distress. VITAL SIGNS: Stable, HEENT: Both pupils are round and reacting. No conjunctival lesion. No lesion in the mouth. NECK: Supple. No JVP, no lymphadenopathy. LUNGS: Clear. HEART: S1, S2, regular. ABDOMEN: Soft, nontender. No organomegaly. EXTREMITIES: No edema, cyanosis. Left foot and ankle is swollen and red. She has had some what appears to be minor skin breakdown, which has actually closed now on the lateral part and the redness is on the foot, ankle and going into the lower part of the leg. There is no localized induration. There is no pus pointing. Large blister has developed NEUROLOGIC: Alert, awake, appropriate. No focal neurologic deficit. General: Alert, Oriented X3, Cooperative Heart: Regular rate, Normal S1, Normal S2 Lungs: Clear Abdomen: Normal bowel sounds, No tenderness, Other (Extremities: Tight skin over the left ankle is warm, erythematous, and edematous when compared to the contralateral foot. Erythema streaking up the left gallardo and calf. She has severe ankle pain with passive range of motion. DP pulse intact. Brisk cap refill.) Extremities: No clubbing, No cyanosis Skin: Other (L. Foot ecchymoses and induration noted, along with skin peeling on popliteal fossa) Labs Labs: Laboratory Tests Test 02/03/21 06:40 White Blood Count 5.3 x10^3/uL (4.0-11.0) Red Blood Count 4.08 x10^6/uL (3.50-5.40) Hemoglobin 7.9 g/dL (12.0-15.5) Hematocrit 26.1 % (36.0-47.0) Mean Corpuscular Volume 64 fL (79-100) Mean Corpuscular Hemoglobin 19 pg (25-35) Mean Corpuscular Hemoglobin Concent 30 g/dL (31-37) Red Cell Distribution Width 19.1 % (11.5-14.5) Platelet Count 398 x10^3/uL (140-400) Neutrophils (%) (Auto) 62 % (31-73) Lymphocytes (%) (Auto) 27 % (24-48) Monocytes (%) (Auto) 8 % (0-9) Eosinophils (%) (Auto) 3 % (0-3) Basophils (%) (Auto) 1 % (0-3) Neutrophils # (Auto) 3.3 x10^3/uL (1.8-7.7) Lymphocytes # (Auto) 1.4 x10^3/uL (1.0-4.8) Monocytes # (Auto) 0.4 x10^3/uL (0.0-1.1) Eosinophils # (Auto) 0.1 x10^3/uL (0.0-0.7) Basophils # (Auto) 0.0 x10^3/uL (0.0-0.2) Sodium Level 137 mmol/L (136-145) Potassium Level 4.0 mmol/L (3.5-5.1) Chloride Level 104 mmol/L (98-107) Carbon Dioxide Level 23 mmol/L (21-32) Anion Gap 10 (6-14) Blood Urea Nitrogen 8 mg/dL (7-20) Creatinine 0.9 mg/dL (0.6-1.0) Estimated GFR (Cockcroft-Gault) 84.8 Glucose Level 81 mg/dL (70-99) Calcium Level 7.9 mg/dL (8.5-10.1) Review of Systems Review of Systems: ROS negative Assessment and Plan Assessmemt and Plan Problems Medical Problems: (1) Cellulitis Status: Acute (2) Sepsis Status: Acute Sepsis Acute left foot cellulitis secondary to trauma ELO (d/t vasomotor nephropathy) Lactic acidemia Reactive leukocytosis Mild hyponatremia Mild hypokalemia Hypophosphatemia Microcytic anemia, likely due to OLIVE Plan IV antibiotics Oral Nystatin Wound care following IV and p.o. electrolyte replacement Continue IV fluids PRN pain meds Home meds DPOA: Carlotta Jack Heparin for DVT prophylaxis Regular diet Disposition pending Full Code Comment Review of Relevant I have reviewed the following items carmel (where applicable) has been applied. Medications: Current Medications Medications (Trade) Dose Ordered Sig/Patricia Route PRN Reason Start Time Stop Time Status Last Admin Dose Admin Nystatin (Nystatin Oral Susp) 5 ml [id number] [facility] 02/02/21 17:00 02/02/21 20:30 Justifications for Admission Other Justification Foot infection REAL MCFDADEN III DO Feb 03, 2021 12:56
[2021-02-03 15:00] VITALS: BP 121/71
[2021-02-03] MEDS: NEOMY/BACITR/POLYMYXIN OINT PACKET. TP SCH ×2 (16:23→21:00)
--- NOTE | 2021-02-03 16:37 | NUR ---
Patient requested that physician order neosporin antibiotic for patient for foot. Dr. Humphreys gave me verbal order okay to order antibiotic ointment and educate patient that she only should use the small amount on foot that is provided up to twice daily. I brought in ointment for patient and patient's mother had just brought in a tube of neosporin antibiotic ointment to patient. I educated patient that she is not to be using the ointment that was brought to her and only the ointment that is ordered by the physician. She refused the education and told me " get out of my room, I need to use the restroom." I asked if she needed help and she stated quickly "NO". I reiterated the education that I provided about the ointment and left the room. Will continue to monitor patient.
--- NOTE | 2021-02-03 17:31 | PDOC2 ---
Chief Complaint: Chief Complaint: Left foot cellulites Vital Signs: Vital Signs: Vital Signs Date Time Temp Pulse Resp B/P (MAP) Pulse Ox O2 Delivery O2 Flow Rate FiO2 02/02/21 07:00 98.3 78 20 119/71 (87) 96 Room Air 98.3 02/02/21 19:00 2.0 Vital Signs Date Time Temp Pulse Resp B/P (MAP) Pulse Ox O2 Delivery O2 Flow Rate FiO2 02/03/21 15:00 98.2 72 18 121/71 (88) 100 Room Air 98.2 02/02/21 19:00 2.0 Allergies: Allergies: Allergies Coded Allergies Type Severity Reaction Last Updated Verified No Known Drug Allergies 01/24/21 No Medications: Home Meds Reported Medications [[No home meds]] No Conflict Check 01/25/21 PCP: PCP: Dr Humphreys Pain: Pain Location: Foot (with active and passive ROM. 10 per patient report) Scale (pain): 10 Date of Onset Injury happened at work on 01/22/2021. 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 Patient states the subsequent days she began to experience swelling, redness and increased pain of the affected foot. Symptoms gradually progressed to fever, chills and nausea. Patient then reported to the emergency room due to her symptoms. Patient denies history of poor wound healing in the past. PMH hypoglycemia Surgical History PSH Patient states that she does smoke cigars on occasion and uses tobacco and a vape. She occasionally uses alcohol. Prior to hospitalization patient lived at home and was independent with ADLs. Review of Systems: Patient denies fever, chills or flulike symptoms over the last 24 hours. Patient states that her appetite has returned however her taste is "off". Patient states that she has been eating and drinking without nausea, vomiting or diarrhea. Patient denies cough or shortness of breath. Patient does complain of pain of her left ankle and foot with both passive and active range of motion. Physical Exam Patient is awake and alert 40-year-old -[place] female in no apparent distress. Vital signs are stable. Patient is afebrile. Respirations are even and unlabored. Patient is on room air not requiring supplemental oxygen at this time. Abdomen is soft, nondistended and nontender to palpation.The left foot does present with erythema and warmth. The erythema is now within the borders of the original sharpie outline. Patient does have full range of motion of her ankle, however expresses painful symptoms with both passive and active range of motion. Patient does have 2+ pitting edema of her foot and ankle region. Deflated blisters present to the lateral aspect of her ankle as well as the posterior. No active drainage or open wounds present. White blood cell count is within normal limits, 5.3 today. Left shift has also corrected from admission. A/P Left ankle/foot cellulites -CT negative for abscess -Imaging negative for fractures -Pedal pulse present bilaterally -ID managing antibiotic therapy -Associated blisters have deflated and appear to be resolving, no need for debridement at this time. -From a wound care standpoint, with blisters intact and no open wounds present, may leave area open to air and monitor closely RAE RITCHIE APRN Feb 03, 2021 17:31
[2021-02-03] MEDS: traMADol 50 MG TABLET PO PRN (17:46)
--- NOTE | 2021-02-03 18:37 | PDOC ---
PROGRESS NOTES Date of Service DATE: 02/03/21 TIME: 18:35 Subjective Subjective Problems overnight: Left foot hurts to move or bear weight Objective Vital Signs Vital Signs Date Time Temp Pulse Resp B/P (MAP) Pulse Ox O2 Delivery O2 Flow Rate FiO2 02/03/21 18:30 100 Room Air 02/03/21 15:00 98.2 72 18 121/71 (88) 98.2 02/02/21 19:00 2.0 Physical Exam Cellulitis resolved lateral left foot and swelling much less as the skin is somewhat wrinkled on the foot no redness or cellulitis proximally above the ankle and she is able to move her ankle some unlike before but has pain on incre ased range of motion Labs Laboratory Tests Test 02/03/21 06:40 White Blood Count 5.3 x10^3/uL (4.0-11.0) Red Blood Count 4.08 x10^6/uL (3.50-5.40) Hemoglobin 7.9 g/dL (12.0-15.5) Hematocrit 26.1 % (36.0-47.0) Mean Corpuscular Volume 64 fL (79-100) Mean Corpuscular Hemoglobin 19 pg (25-35) Mean Corpuscular Hemoglobin Concent 30 g/dL (31-37) Red Cell Distribution Width 19.1 % (11.5-14.5) Platelet Count 398 x10^3/uL (140-400) Neutrophils (%) (Auto) 62 % (31-73) Lymphocytes (%) (Auto) 27 % (24-48) Monocytes (%) (Auto) 8 % (0-9) Eosinophils (%) (Auto) 3 % (0-3) Basophils (%) (Auto) 1 % (0-3) Neutrophils # (Auto) 3.3 x10^3/uL (1.8-7.7) Lymphocytes # (Auto) 1.4 x10^3/uL (1.0-4.8) Monocytes # (Auto) 0.4 x10^3/uL (0.0-1.1) Eosinophils # (Auto) 0.1 x10^3/uL (0.0-0.7) Basophils # (Auto) 0.0 x10^3/uL (0.0-0.2) Sodium Level 137 mmol/L (136-145) Potassium Level 4.0 mmol/L (3.5-5.1) Chloride Level 104 mmol/L (98-107) Carbon Dioxide Level 23 mmol/L (21-32) Anion Gap 10 (6-14) Blood Urea Nitrogen 8 mg/dL (7-20) Creatinine 0.9 mg/dL (0.6-1.0) Estimated GFR (Cockcroft-Gault) 84.8 Glucose Level 81 mg/dL (70-99) Calcium Level 7.9 mg/dL (8.5-10.1) Laboratory Tests Test 02/03/21 06:40 White Blood Count 5.3 x10^3/uL (4.0-11.0) Red Blood Count 4.08 x10^6/uL (3.50-5.40) Hemoglobin 7.9 g/dL (12.0-15.5) Hematocrit 26.1 % (36.0-47.0) Mean Corpuscular Volume 64 fL (79-100) Mean Corpuscular Hemoglobin 19 pg (25-35) Mean Corpuscular Hemoglobin Concent 30 g/dL (31-37) Red Cell Distribution Width 19.1 % (11.5-14.5) Platelet Count 398 x10^3/uL (140-400) Neutrophils (%) (Auto) 62 % (31-73) Lymphocytes (%) (Auto) 27 % (24-48) Monocytes (%) (Auto) 8 % (0-9) Eosinophils (%) (Auto) 3 % (0-3) Basophils (%) (Auto) 1 % (0-3) Neutrophils # (Auto) 3.3 x10^3/uL (1.8-7.7) Lymphocytes # (Auto) 1.4 x10^3/uL (1.0-4.8) Monocytes # (Auto) 0.4 x10^3/uL (0.0-1.1) Eosinophils # (Auto) 0.1 x10^3/uL (0.0-0.7) Basophils # (Auto) 0.0 x10^3/uL (0.0-0.2) Sodium Level 137 mmol/L (136-145) Potassium Level 4.0 mmol/L (3.5-5.1) Chloride Level 104 mmol/L (98-107) Carbon Dioxide Level 23 mmol/L (21-32) Anion Gap 10 (6-14) Blood Urea Nitrogen 8 mg/dL (7-20) Creatinine 0.9 mg/dL (0.6-1.0) Estimated GFR (Cockcroft-Gault) 84.8 Glucose Level 81 mg/dL (70-99) Calcium Level 7.9 mg/dL (8.5-10.1) Assessment Assessment Nonoperative antibiotic treatment of left foot cellulitis and abrasion Plan Plan of Care Continue antibiotic treatment and nonoperative management of abrasion and cellulitis of left foot, continues resolution Justicifation of Admission Dx: Justifications for Admission: Justification of Admission Dx: N/A BERLIN FERNANDES MD Feb 03, 2021 18:37
[2021-02-03 19:00] VITALS: BP 118/89
[2021-02-03] MEDS: ENOXAPARIN 40 MG/0.4 ML SYRINGE. SQ SCH ×2 (21:00→23:08)
[2021-02-03 23:00] VITALS: BP 109/85
[2021-02-04] MEDS: PIPERACILLIN/TAZOBACTAM 3.375 GM in IV NORMAL SALINE 50ML 50 ML IV SCH ×5 (00:16→23:46)
[2021-02-04 07:00] VITALS: BP 103/47
[2021-02-04 07:25] LABS: CALCIUM 8.2 mg/dL (8.5-10.1); GFR 75.1; POTASSIUM 3.8 mmol/L (3.5-5.1)
[2021-02-04 07:47] LABS: BASO % 1 % (0-3); EOS # 0.1 x10^3/uL (0.0-0.7); EOS % 3 % (0-3); HEMATOCRIT 26.1 % (36.0-47.0); LYMPH # 1.5 x10^3/uL (1.0-4.8); LYMPH % 27 % (24-48); MEAN CORPUSCULAR HEMOGLOBIN 20 pg (25-35); MEAN CORPUSCULAR HGB CONC 31 g/dL (31-37); MEAN CORPUSCULAR VOLUME 64 fL (79-100); MONO # 0.4 x10^3/uL (0.0-1.1); MONO % 7 % (0-9); NEUT # 3.5 x10^3/uL (1.8-7.7); NEUT % 63 % (31-73); PLATELET COUNT 389 x10^3/uL (140-400); RED BLOOD COUNT 4.06 x10^6/uL (3.50-5.40); RED CELL DISTRIBUTION WIDTH 20.1 % (11.5-14.5); WHITE BLOOD COUNT 5.6 x10^3/uL (4.0-11.0)
[2021-02-04] MEDS: NEOMY/BACITR/POLYMYXIN OINT PACKET. TP SCH ×2 (09:00→21:00)
[2021-02-04] MEDS: LIDOCAINE (700MG/PATCH) PATCH. TD SCH (09:00)
--- NOTE | 2021-02-04 09:31 | PDOC ---
[facility] PROGRESS NOTE Date of Service DOS: DATE: 02/04/21 TIME: 09:27 Chief Complaint Chief Complaint Sepsis Acute left foot cellulitis secondary to trauma ELO due to vasomotor nephropathy Lactic acidemia Reactive leukocytosis Mild hyponatremia Mild hypokalemia Hypophosphatemia Microcytic anemia, likely due to OLIVE History of Present Illness History of Present Illness 02/04/2021 Patient examined and seen at bedside Chart reviewed No acute overnight events noted Pt was resting comfortably upon examination Pt's mood improved and feels better Pt's wounds appear to be improving Lizz 02/03/2021 Pt seen and examined at bedside Charts reviewed No acute overnight events Patient was upset over R. Foot swelling and wound Pt complained of small raised lesions on tongue and oral mucosa Discussed case with SORAIDA and RN 02/02/2021 Patient seen and examined, chart reviewed Discussed with DAYSI Ms Jack is a 40 yo female who presents with left foot and ankle pain. 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 Had a scrape on the back of her ankle. She put antibiotic ointment and had a bandage. Over 24 hours began having quickly advancing redness, swelling, and increasing pain. Overnight complained of subjective fever, chills, nausea, vomiting. She attributes her nausea and vomiting to a "bad" chicken salad from [employer]. 01/25: No acute events overnight. Patient seen and examined bedside. Continues to have pain in her left lower extremity. Progression of her redness has not worsened. Ortho evaluated and continues to recommend nonsurgical management. Continue with IV antibiotics. Patient's chart, labs, images were reviewed and discussed with RN 01/26: Vancomycin trough low. Still with significant pain and now blistering around her lateral left ankle. ID consulted by ortho. C/o headache and nausea today as well. 01/27: Afebrile overnight. No nausea vomiting or diarrhea though she does have some epigastric fullness. Headaches improved, but foot pain is minimally i mproved. Swelling is minimally improved the redness and erythema seem to be increased including her calf up to her popliteal fossa. There is good skin wrinkling and some blistering laterally on the malleolus. WBC still elevated. K 3 today. 01/28: Febrile 101.4 F overnight. Cramping of neck and back today, K 3.2 today. Pain in left leg still severe, a little more blistering near lateral malleolus. 01/29: Afebrile for past 24 hours. Back and neck pain improved. Phosphorus low on IV K-Phos replacement states she is get some IV site pain is noted some negative interactions with nursing staff due to feeling reaction time for her pain is not appropriate. She does note that she is "needy" when it comes to pain. Attempted weightbearing on her left foot with severe pain in her MTP joint. Redness is improving pain is improving blistering has worsened and now is including posterior calf. Discussed with ID 01/30: Afebrile, WBC 10.8. Concerned about the size of the posterior to left dorsal foot. Pain relatively controlled. Still feeling apprehensive to attempt ambulation. Continue IV antibiotics, Zosyn and Zyvox. Reinforced elevation of left leg above the level of the heart. 01/31: Afebrile. Feels there is some improvement in the proximal portion of her left lower extremity cellulitis, however concerned that they appear to be peripheral skin changes around the blister on her dorsal foot. Continue IV antibiotics. Recommended adding additional pillow underneath her left foot to maintain legs in optimal position to drain fluid. "Toes above nose ". 02/01: Afebrile. Left foot blister popped overnight, with clear yellow drainage. Unfortunately no cultures were obtained. We will continue to treat empirically with Zosyn IV. Leg elevation. When able to ambulate with crutches she can discharge on p.o. Augmentin to complete outpatient antibiotic regimen. Vitals/I&O Vitals/I&O: Vital Signs Date Time Temp Pulse Resp B/P (MAP) Pulse Ox O2 Delivery O2 Flow Rate FiO2 02/04/21 07:00 97.8 82 18 103/47 (65) 95 Room Air 2.0 97.8 I & O 02/03/21 02/03/21 02/04/21 15:00 23:00 07:00 Intake Total 1290 ml 250 ml 50 ml Balance 1290 ml 250 ml 50 ml Physical Exam Physical Exam: GENERAL: Alert, oriented female, comfortable. Pleasant. VITAL SIGNS: Stable, HEENT: Both pupils are round and reacting. No conjunctival lesion. No lesion in the mouth. NECK: Supple. No JVP, no lymphadenopathy. LUNGS: Clear. HEART: S1, S2, regular. ABDOMEN: Soft, nontender. No organomegaly. EXTREMITIES: No edema, cyanosis. Left foot and ankle is swollen and red. She has had some what appears to be minor skin breakdown, which has actually closed now on the lateral part and the redness is on the foot, ankle and going into the lower part of the leg. There is no localized induration. There is no pus pointing. Large blister has developed NEUROLOGIC: Alert, awake, appropriate. No focal neurologic deficit. General: Alert, Oriented X3, Cooperative Heart: Regular rate, Normal S1, Normal S2 Lungs: Clear Abdomen: Normal bowel sounds, No tenderness, Other (Extremities: Tight skin o ajay the left ankle is warm, erythematous, and edematous when compared to the contralateral foot. Erythema streaking up the left gallardo and calf. She has severe ankle pain with passive range of motion. DP pulse intact. Brisk cap refill.) Extremities: No clubbing, No cyanosis Skin: Other (L. Foot ecchymoses and induration noted, along with skin peeling on popliteal fossa) Labs Labs: Laboratory Tests Test 02/04/21 06:45 White Blood Count 5.6 x10^3/uL (4.0-11.0) Red Blood Count 4.06 x10^6/uL (3.50-5.40) Hemoglobin 8.0 g/dL (12.0-15.5) Hematocrit 26.1 % (36.0-47.0) Mean Corpuscular Volume 64 fL (79-100) Mean Corpuscular Hemoglobin 20 pg (25-35) Mean Corpuscular Hemoglobin Concent 31 g/dL (31-37) Red Cell Distribution Width 20.1 % (11.5-14.5) Platelet Count 389 x10^3/uL (140-400) Neutrophils (%) (Auto) 63 % (31-73) Lymphocytes (%) (Auto) 27 % (24-48) Monocytes (%) (Auto) 7 % (0-9) Eosinophils (%) (Auto) 3 % (0-3) Basophils (%) (Auto) 1 % (0-3) Neutrophils # (Auto) 3.5 x10^3/uL (1.8-7.7) Lymphocytes # (Auto) 1.5 x10^3/uL (1.0-4.8) Monocytes # (Auto) 0.4 x10^3/uL (0.0-1.1) Eosinophils # (Auto) 0.1 x10^3/uL (0.0-0.7) Basophils # (Auto) 0.0 x10^3/uL (0.0-0.2) Sodium Level 137 mmol/L (136-145) Potassium Level 3.8 mmol/L (3.5-5.1) Chloride Level 104 mmol/L (98-107) Carbon Dioxide Level 23 mmol/L (21-32) Anion Gap 10 (6-14) Blood Urea Nitrogen 14 mg/dL (7-20) Creatinine 1.0 mg/dL (0.6-1.0) Estimated GFR (Cockcroft-Gault) 75.1 Glucose Level 86 mg/dL (70-99) Calcium Level 8.2 mg/dL (8.5-10.1) Review of Systems Review of Systems: ROS negative Assessment and Plan Assessmemt and Plan Problems Medical Problems: (1) Cellulitis Status: Acute (2) Sepsis Status: Acute Sepsis Acute left foot cellulitis secondary to trauma ELO (d/t vasomotor nephropathy) Lactic acidemia Reactive leukocytosis Mild hyponatremia Mild hypokalemia Hypophosphatemia Microcytic anemia, likely due to OLIVE Plan Continue IV antibiotics Wound care following IV and p.o. electrolyte replacement Continue IV fluids PRN pain meds Home meds as indicated DPOA: Carlotta Jack Heparin for DVT prophylaxis Regular diet Disposition pending Full Code Comment Review of Relevant I have reviewed the following items carmel (where applicable) has been applied. Medications: Current Medications Medications (Trade) Dose Ordered Sig/Patricia Route PRN Reason Start Time Stop Time Status Last Admin Dose Admin Neomycin/ Polymyxin/ Bacitracin (Triple Antibiotic Ointment) 1 pkt BID TP 02/03/21 12:30 02/03/21 16:23 Justifications for Admission Other Justification Foot infection REAL MCFADDEN III DO Feb 04, 2021 09:31
[2021-02-04] MEDS: NYSTATIN 100,000 UNITS/ML 5 ML ORAL.SUSP. SWSW SCH ×4 (10:24→21:00)
[2021-02-04] MEDS: FAMOTIDINE 20 MG TABLET. PO SCH ×2 (10:25→23:50)
[2021-02-04] MEDS: LINEZOLID 600 MG TABLET PO SCH ×2 (10:25→23:49)
[2021-02-04] MEDS: LACTOBACILLUS RHAMNOSUS GG 1 CAPSULE. PO SCH ×2 (10:25→23:50)
[2021-02-04 10:43] VITALS: BP 122/70
[2021-02-04] MEDS: IV NORMAL SALINE 1000ML BAG 1,000 ML IV SCH ×3 (10:55→23:49)
--- NOTE | 2021-02-04 11:01 | NUR ---
SS following up with discharge planning. SS reviewed pt chart and discussed with pt RN. Pt is from home and is currently on room air. COVID19 negative. Pt on IV Zosyn. PT/OT ordered. Wound care consulted. SS will continue to follow for discharge planning.
[2021-02-04 14:51] VITALS: BP 105/47
[2021-02-04] MEDS: traMADol 50 MG TABLET PO PRN (16:15)
[2021-02-04] MEDS: ACETAMINOPHEN 325 MG TABLET. PO PRN (18:33)
[2021-02-04 19:00] VITALS: BP 109/66
[2021-02-04] MEDS: ENOXAPARIN 40 MG/0.4 ML SYRINGE. SQ SCH (21:00)
[2021-02-04 22:50] VITALS: BP 112/68
[2021-02-05 03:00] VITALS: BP 115/62
[2021-02-05 04:37] LABS: BASO % 1 % (0-3); EOS # 0.1 x10^3/uL (0.0-0.7); EOS % 2 % (0-3); HEMATOCRIT 28.1 % (36.0-47.0); HEMOGLOBIN 8.4 g/dL (12.0-15.5); LYMPH # 1.4 x10^3/uL (1.0-4.8); LYMPH % 28 % (24-48); MEAN CORPUSCULAR HEMOGLOBIN 19 pg (25-35); MEAN CORPUSCULAR HGB CONC 30 g/dL (31-37); MEAN CORPUSCULAR VOLUME 64 fL (79-100); MONO # 0.3 x10^3/uL (0.0-1.1); MONO % 6 % (0-9); NEUT # 3.1 x10^3/uL (1.8-7.7); NEUT % 63 % (31-73); PLATELET COUNT 406 x10^3/uL (140-400); RED BLOOD COUNT 4.36 x10^6/uL (3.50-5.40); WHITE BLOOD COUNT 4.9 x10^3/uL (4.0-11.0)
[2021-02-05 04:49] LABS: CREATININE 0.8 mg/dL (0.6-1.0); GFR 97.1; POTASSIUM 3.7 mmol/L (3.5-5.1)
[2021-02-05] MEDS: PIPERACILLIN/TAZOBACTAM 3.375 GM in IV NORMAL SALINE 50ML 50 ML IV SCH ×2 (05:47→11:45)
[2021-02-05] MEDS: LACTOBACILLUS RHAMNOSUS GG 1 CAPSULE. PO SCH (08:01)
[2021-02-05] MEDS: LINEZOLID 600 MG TABLET PO SCH (08:02)
[2021-02-05] MEDS: NYSTATIN 100,000 UNITS/ML 5 ML ORAL.SUSP. SWSW SCH ×2 (08:02→11:47)
[2021-02-05] MEDS: FAMOTIDINE 20 MG TABLET. PO SCH (08:02)
[2021-02-05] MEDS: LIDOCAINE (700MG/PATCH) PATCH. TD SCH (08:02)
[2021-02-05] MEDS: IBUPROFEN 400 MG TABLET. PO PRN (08:02)
[2021-02-05] MEDS: CYCLOBENZAPRINE 10 MG TABLET. PO PRN (08:17)
[2021-02-05] MEDS: PROCHLORPERAZINE 10 MG/2 ML VIAL. IV PRN (08:17)
[2021-02-05] MEDS ORDERED: ASCORBIC ACID 500 MG TABLET PO SCH (09:00)
[2021-02-05] MEDS ORDERED: MULTIVITAMIN with MINERAL TABLET. PO SCH (09:00)
[2021-02-05] MEDS: NEOMY/BACITR/POLYMYXIN OINT PACKET. TP SCH (09:00)
[2021-02-05] MEDS: IV NORMAL SALINE 1000ML BAG 1,000 ML IV SCH (10:00)
[2021-02-05] MEDS ORDERED: AMOX1TAB61 PO (10:25)
[2021-02-05] MEDS ORDERED: CYCL10TA2 PO (10:25)
[2021-02-05] MEDS ORDERED: FAMO20TA5 PO (10:25)
[2021-02-05 11:00] VITALS: BP 113/52
--- NOTE | 2021-02-05 11:48 | PDOC3 ---
[facility]-Discharge Summary Date of Admission: Date of Admission: Jan 24, 2021 Date of Discharge: Date of Discharge: Feb 05, 2021 Admission Diagnosis: Problems: (1) Cellulitis Discharge Diagnosis: Discharge Diagnosis: Same Consults: Consults: Orthopedics, wound care Hospital Course: Hospital Course: Chief Complaint Chief Complaint Sepsis Acute left foot cellulitis secondary to trauma ELO due to vasomotor nephropathy Lactic acidemia Reactive leukocytosis Mild hyponatremia Mild hypokalemia Hypophosphatemia Microcytic anemia, likely due to OLIVE History of Present Illness History of Present Illness 02/05 Patient evaluated examined at bedside. She was in bed reporting some nausea but was tolerable. Essentially she has received adequate inpatient antibiotic treatment. She is appropriate to transition to p.o. Augmentin. Discharging home today. After some reluctance she was agreeable to discharge. I spent greater than 30 minutes coordinating planning and evaluating the patient [id number] for discharge. I spent 18 minutes discussing advance care planning with this patient. 02/04/2021 Patient examined and seen at bedside Chart reviewed No acute overnight events noted Pt was resting comfortably upon examination Pt's mood improved and feels better Pt's wounds appear to be improving Lizz 02/03/2021 Pt seen and examined at bedside Charts reviewed No acute overnight events Patient was upset over R. Foot swelling and wound Pt complained of small raised lesions on tongue and oral mucosa Discussed case with SORAIDA and RN 02/02/2021 Patient seen and examined, chart reviewed Discussed with RN Ms Jack is a 40 yo female who presents with left foot and ankle pain. 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 Had a scrape on the back of her ankle. She put antibiotic ointment and had a bandage. Over 24 hours began having quickly advancing redness, swelling, and increasing pain. Overnight complained of subjective fever, chills, nausea, vomiting. She attributes her nausea and vomiting to a "bad" chicken salad from [employer]. 01/25: No acute events overnight. Patient seen and examined bedside. Continues to have pain in her left lower extremity. Progression of her redness has not worsened. Ortho evaluated and continues to recommend nonsurgical management. Continue with IV antibiotics. Patient's chart, labs, images were reviewed and discussed with RN 01/26: Vancomycin trough low. Still with significant pain and now blistering around her lateral left ankle. ID consulted by ortho. C/o headache and nausea today as well. 01/27: Afebrile overnight. No nausea vomiting or diarrhea though she does have some epigastric fullness. Headaches improved, but foot pain is minimally improved. Swelling is minimally improved the redness and erythema seem to be increased including her calf up to her popliteal fossa. There is good skin wrinkling and some blistering laterally on the malleolus. WBC still elevated. K 3 today. 01/28: Febrile 101.4 F overnight. Cramping of neck and back today, K 3.2 today. Pain in left leg still severe, a little more blistering near lateral malleolus. 01/29: Afebrile for past 24 hours. Back and neck pain improved. Phosphorus low on IV K-Phos replacement states she is get some IV site pain is noted some negative interactions with nursing staff due to feeling reaction time for her pain is not appropriate. She does note that she is "needy" when it comes to pain. Attempted weightbearing on her left foot with severe pain in her MTP mary nt. Redness is improving pain is improving blistering has worsened and now is including posterior calf. Discussed with ID 01/30: Afebrile, WBC 10.8. Concerned about the size of the posterior to left dorsal foot. Pain relatively controlled. Still feeling apprehensive to attempt ambulation. Continue IV antibiotics, Zosyn and Zyvox. Reinforced elevation of left leg above the level of the heart. 01/31: Afebrile. Feels there is some improvement in the proximal portion of her left lower extremity cellulitis, however concerned that they appear to be peripheral skin changes around the blister on her dorsal foot. Continue IV antibiotics. Recommended adding additional pillow underneath her left foot to maintain legs in optimal position to drain fluid. "Toes above nose ". 02/01: Afebrile. Left foot blister popped overnight, with clear yellow drainage. Unfortunately no cultures were obtained. We will continue to treat empirically with Zosyn IV. Leg elevation. When able to ambulate with crutches she can discharge on p.o. Augmentin to complete outpatient antibiotic regimen. Disposition: Disposition/Orders: D/C to Home Activity: Activity: Resume previous activity Diet: Diet: Regular Medications: Home Meds Active Scripts Amoxicillin/Potassium Clav (AUGMENTIN 875-125 TABLET) 1 Each Tablet, 1 TAB PO BID for Cellulitis for 7 Days, #14 TAB 0 Refills Prov:SUSIE MUNOZ MD 02/05/21 Cyclobenzaprine Hcl (CYCLOBENZAPRINE HCL) 10 Mg Tablet, 10 MG PO PRN Q6HRS PRN for MUSCLE SPASMS for 5 Days, #15 TAB Prov:SUSIE MUNOZ MD 02/05/21 Famotidine (FAMOTIDINE) 20 Mg Tablet, 20 MG PO BID for gerd for 30 Days, #60 TAB Prov:SUSIE MUNOZ MD 02/05/21 Discontinued Reported Medications [[No home meds]] No Conflict Check 01/25/21 Scheduled Amoxicillin/Potassium Clav (Augmentin 875-125 Tablet), 1 TAB PO BID Famotidine (Famotidine), 20 MG PO BID Scheduled PRN Cyclobenzaprine Hcl (Cyclobenzaprine Hcl), 10 MG PO PRN Q6HRS PRN for MUSCLE SPASMS Discontinued Medications [[No home meds]], (Reported) Justicifation of Admission Dx: Justifications for Admission: Justification of Admission Dx: N/A SUSIE MUNOZ MD Feb 05, 2021 11:48
--- NOTE | 2021-02-05 14:47 | NUR ---
SW following. Discussed with RN, discharge order for home with self care. SW received a call from pt's workers comp claims person, Gaby stating pt is requesting a hospital transfer because she still thinks she needs IV abx. SORAIDA explained to Gaby that pt has a discharge order so can follow up at another hospital if she feels she still needs hospitalization after returning home. SORAIDA explained to Gaby that hospitals are not often accepting patient choice transfer requests because those pt's can be treated at the hospital they are already at. SORAIDA explained this to pt. Pt requesting walker, provided a [employer] walker at no cost. Gaby requested script for shower chair, grab bars and wound care supplies. Laura (certified financial planner) faxed these scripts and discharge summary to Gaby at [phone]. No further SW needs. Pt is a high risk readmission to another hospital.
--- NOTE | 2021-02-05 15:14 | NUR ---
Patient discharged home to family in stable condition. Pt provided with walker, adjusted for pt's height. Wound care nurse present for dressing change, instructed patient on dressing changes as well. Rx's were faxed to appropriate workman's comp providers, including supplies for dressing changes. Patient verbalized understanding of dressing changes, medications, follow up, activity. Noted pt has tendency to lay for long periods with foot dropped forward. Reinforced importance to continue rom, including pulling toes back to prevent foot drop. Patient verbalized and demonstrated understanding of all instructions. Pt related that she has received confirmation from her pharmacy that prescriptions have been filled and are ready for slate picker. All of belongings in room were taken with patient (cart was also utilized). Patient appeared to be in good spirits.
== END 2021-02-05 15:14 | disposition home or self-care (01) | DRG 871 ==
LOC: ER 13:42 → 5 SOUTH 16:49 → ER 18:01
PROVIDERS: ADMIT Internal Medicine; ATTEND Internal Medicine
DX: A41.9 Sepsis, unspecified organism (principal); N17.0 Acute kidney failure with tubular necrosis; E87.1 Hypo-osmolality and hyponatremia; L03.116 Cellulitis of left lower limb; D50.9 Iron deficiency anemia, unspecified; D72.828 Other elevated white blood cell count; E83.39 Other disorders of phosphorus metabolism; E87.6 Hypokalemia; F17.290 Nicotine dependence, other tobacco product, uncomplicated; K14.9 Disease of tongue, unspecified; L29.9 Pruritus, unspecified; S90.512A Abrasion, left ankle, initial encounter; S90.822A Blister (nonthermal), left foot, initial encounter; T40.2X5A Adverse effect of other opioids, initial encounter; Z98.891 History of uterine scar from previous surgery
CPT/HCPCS: 36415; 73610; 73630; 73701; 80048; 80053; 80202; 81025; 83540; 83550; 83605; 83735; 84100; 85007; 85025; 85651; 86140; 87040; 87426; 90471; 90715; 96365; 96366; 96374; 96375; J0692; J0696; J0780; J1170; J1650; J1885; J2270; J2405; J2543; J3370; J3475; J3480; J3490; J7030; J7040; J7050; Q9967; U0003; U0005; 99285-25; G0378; Q0163

== ENCOUNTER → 2021-02-16 | Outpatient (CLI) | payer OTHER ==
[2021-02-05 11:00] VITALS: BP 113/52
[~2021-02-16] MED LIST: AMOX1TAB61 PO; CYCL10TA19 PO; FAMO20TA5 PO; GADOTERATE 7.5 MMOL/15ML VIAL. IVP ONE; [UNRECOGNIZED DRUG - REMARK]
--- NOTE | 2021-02-16 16:00 | KCIC ---
Examination: MRI of the left ankle without and with IV contrast HISTORY: History of slicing injury, cellulitis COMPARISON: None available TECHNIQUE: Multiplanar, multisequence MR imaging of the left ankle was performed without and with IV contrast. IV contrast used was 12cc clariscan FINDINGS: The attachment of the Achilles tendon to the calcaneus grossly appears intact. The attachment of the plantar fascia to the inferior aspect of the calcaneus grossly appears intact. The alignment of the tarsal bones, tarsometatarsal joint grossly appears unremarkable. The anterior extensor compartment t endons, flexor tendons, peroneal tendons grossly appears intact. There is moderate increased T2 signa l with enhancement identified in the soft tissue lateral to the fibula in the lower leg and extending into the lateral aspect of the foot with fluid interspersed within without obvious focal fluid colle ction likely soft tissue infection or cellulitis without obvious focal abscess formation. The anterior, posterior tibiofibular, talofibular ligaments appear intact. IMPRESSION: Moderate increased T2 signal with enhancement identified in the soft tissue lateral to the fibula in the lower leg and extending into the lateral aspect of the foot with fluid interspersed within withou t obvious focal fluid collection likely soft tissue infection or cellulitis without obvious focal abs cess formation. Electronically signed by: Hermes Alexander MD (02/16/2021 3:58 PM) [id number]
== END ==
LOC: KCIC MRI 13:06
PROVIDERS: ATTEND Podiatrist
DX: L03.90 Cellulitis, unspecified (principal)
CPT/HCPCS: 73723; A9575

== ENCOUNTER → 2021-02-20 | Outpatient (CLI) | payer OTHER ==
[2021-02-05 11:00] VITALS: BP 113/52
[~2021-02-20] MED LIST changes: -GADOTERATE 7.5 MMOL/15ML VIAL. IVP ONE
[2021-02-20 14:50] LABS: BASO % 1 % (0-3); EOS # 0.2 x10^3/uL (0.0-0.7); EOS % 4 % (0-3); HEMATOCRIT 31.6 % (36.0-47.0); HEMOGLOBIN 9.5 g/dL (12.0-15.5); LYMPH # 1.5 x10^3/uL (1.0-4.8); LYMPH % 31 % (24-48); MEAN CORPUSCULAR HEMOGLOBIN 20 pg (25-35); MEAN CORPUSCULAR HGB CONC 30 g/dL (31-37); MEAN CORPUSCULAR VOLUME 66 fL (79-100); MONO # 0.4 x10^3/uL (0.0-1.1); MONO % 8 % (0-9); NEUT # 2.9 x10^3/uL (1.8-7.7); NEUT % 58 % (31-73); PLATELET COUNT 516 x10^3/uL (140-400); RED BLOOD COUNT 4.84 x10^6/uL (3.50-5.40); RED CELL DISTRIBUTION WIDTH 20.7 % (11.5-14.5)
[2021-02-20 15:05] LABS: ALBUMIN 3.7 g/dL (3.4-5.0); ALBUMIN/GLOBULIN RATIO 0.8 (1.0-1.7); C-REACTIVE PROTEIN 1.3 mg/L (0-3.3); CALCIUM 8.6 mg/dL (8.5-10.1); CREATININE 0.7 mg/dL (0.6-1.0); GFR 113.3; POTASSIUM 3.8 mmol/L (3.5-5.1); TOTAL BILIRUBIN 0.7 mg/dL (0.2-1.0); TOTAL PROTEIN 8.1 g/dL (6.4-8.2)
[2021-02-20 15:37] LABS: ANISOCYTOSIS MOD; HYPOCHROMIA MARKED; MICROCYTOSIS MARKED; OVALOCYTES MOD; PLT ESTIMATE INCREASED (ADEQUATE); TEAR DROP CELLS FEW
== END ==
LOC: LAB 14:16
PROVIDERS: ATTEND Internal Medicine Infectious Disease
DX: L03.116 Cellulitis of left lower limb (principal)
CPT/HCPCS: 36415; 80053; 85025; 85651; 86140

== ENCOUNTER → 2021-02-23 | Outpatient (CLI) | payer OTHER ==
[2021-02-05 11:00] VITALS: BP 113/52
== END ==
LOC: LAB 15:48
PROVIDERS: ATTEND Internal Medicine Infectious Disease
DX: S81.802A Unspecified open wound, left lower leg, initial encounter (principal); L03.116 Cellulitis of left lower limb; X58.XXXA Exposure to other specified factors, initial encounter; Y93.89 Activity, other specified; Y92.89 Other specified places as the place of occurrence of the external cause; Y99.8 Other external cause status
CPT/HCPCS: 87177; 87209; 87493